=== PATIENT | female | born 1960 | race African-American/Black ===

== ENCOUNTER 2017-08-03 15:30 | Inpatient (IN) | payer MEDICARE, MEDICAID ==
[~2017-08-03] VITALS: Ht 157.5 cm; Wt 98.9 kg
[~2017-08-03 15:30] MED LIST: ALLO300T PO; FERR-36 PO; ISOS30TA4 PO; LANS15CA78 PO; METO100T5 PO; METO50TA6 PO; NITR2.5C3 PO; OXYC10TA57 PO; POTA20TA12 PO; PRAV40TA2 PO; PRED-220 PO; PROP150T2 PO; TORS20TA2 PO; TRIA1TAB2 PO
[2017-08-03 16:38] LABS: BASO % 0 % (0-3); EOS % 0 % (0-3); HEMATOCRIT 27.7 % (36.0-47.0); HEMOGLOBIN 9.5 g/dL (12.0-15.5); LYMPH # 0.3 x10^3/uL (1.0-4.8); LYMPH % 3 % (24-48); MEAN CORPUSCULAR HEMOGLOBIN 32 pg (25-35); MEAN CORPUSCULAR HGB CONC 34 g/dL (31-37); MEAN CORPUSCULAR VOLUME 92 fL (79-100); MONO # 0.5 x10^3/uL (0.0-1.1); MONO % 6 % (0-9); NEUT # 6.9 x10^3uL (1.8-7.7); NEUT % 90 % (31-73); PLATELET COUNT 184 x10^3/uL (140-400); RED BLOOD COUNT 3.02 x10^6/uL (3.50-5.40); RED CELL DISTRIBUTION WIDTH 16.4 % (11.5-14.5); WHITE BLOOD COUNT 7.7 x10^3/uL (4.0-11.0)
[2017-08-03 16:46] LABS: BACTERIA,URINE 0 /HPF (0-FEW); BILIRUBIN,URINE NEG (NEG); CLARITY,URINE CLEAR; COLOR,URINE YELLOW; GLUCOSE,URINE NEG (NEG); NITRITE,URINE NEG (NEG); RBC,URINE OCC /HPF (0-2); SQUAMOUS EPITHELIAL CELL,UR OCC /LPF; UROBILINOGEN,URINE 2 mg/dL (0.2 mg/dL); WBC,URINE OCC /HPF (0-4)
[2017-08-03 16:47] LABS: AMORPHOUS SEDIMENT,UR PRESENT /HPF
--- NOTE | 2017-08-03 17:00 | EKG ---
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
[2017-08-03 17:31] LABS: ALBUMIN 2.6 g/dL (3.4-5.0); ALBUMIN/GLOBULIN RATIO 0.6 (1.0-1.7); ALK PHOS 270 U/L (46-116); ALT (SGPT) 31 U/L (14-59); ANION GAP 11 (6-14); AST (SGOT) 64 U/L (15-37); BLOOD UREA NITROGEN 15 mg/dL (7-20); BUN/CREATININE RATIO 13 (6-20); CALCIUM 8.4 mg/dL (8.5-10.1); CARBON DIOXIDE 22 mmol/L (21-32); CHLORIDE 84 mmol/L (98-107); CREATINE KINASE 42 U/L (26-192); CREATININE 1.2 mg/dL (0.6-1.0); GFR 56.6; GLUCOSE 121 mg/dL (70-99); MAGNESIUM 1.5 mg/dL (1.8-2.4); POTASSIUM 4.7 mmol/L (3.5-5.1); TOTAL BILIRUBIN 1.2 mg/dL (0.2-1.0); TOTAL PROTEIN 7.2 g/dL (6.4-8.2)
[2017-08-03 17:35] LABS: SODIUM 117 mmol/L (136-145)
--- NOTE | 2017-08-03 17:48 | PHYS DOC ---
Past History Past Medical History: Arrhythmia, CHF, Hypertension, Hypotension, Renal Failure Additional Past Medical Histor: Sarcoidosis Past Surgical History: Other Smoking: Non-smoker Alcohol Use: None Drug Use: None Adult General Chief Complaint Chief Complaint: MULTIPLE COMPLAINTS HPI HPI Patient is a 56-year-old female brought from home by family with a complaint of weakness. Patient states she has been weak and off balance for maybe a month. She came in today because she couldn't even get out of bed. It has been progressively worsening. When asked if she has any pain, the patient states "well I do have a headache". She does not have any significant pain at this time. She feels a little short of breath. She denies chest pain. She has not had a fall. ED nursing staff report that the patient required a significant amount of help to get out of the car and required wheelchair to get back to her room, required a lot of help to get out of the wheelchair into the bed. Patient states she has had some nausea and vomited twice. She is constipated. Patient lives with multiple family members. She gives a history of sarcoidosis. She has been taking her medications as prescribed but does not have a list with her. PCP Dr. Hernandez Review of Systems Review of Systems Constitutional: Denies fever or chills [] HENT: Denies nasal congestion or sore throat [] Respiratory: She has a little short of breath Cardiovascular: Denies chest pain GI: Denies abdominal pain, she has had some nausea and a couple of episodes of vomiting, denies diarrhea : Denies dysuria or hematuria [] Musculoskeletal: Denies back pain or joint pain [] Integument: Denies rash or skin lesions [] Neurologic: She has had a mild headache Allergies Allergies Allergies Coded Allergies Type Severity Reaction Last Updated Verified No Known Drug Allergies 11/08/14 No Physical Exam Physical Exam Constitutional: Well developed, well nourished, alert, mentating normally, nonfocal HENT: Normocephalic, atraumatic, bilateral external ears normal, nose normal. [ ] Eyes: conjunctiva normal, no discharge. [] Neck: Normal range of motion, no stridor. [] Cardiovascular:Heart rate regular rhythm, no murmur [] Lungs & Thorax: Bilateral breath sounds clear to auscultation [] Abdomen: Bowel sounds normal, soft, no tenderness, no masses, no pulsatile masses. [] Skin: Warm, dry, no erythema, no rash. [] Extremities: No tenderness, no cyanosis, no clubbing, ROM intact, trace edema both ankles Neurologic: Alert and oriented X 3, normal motor function, no focal deficits noted. [] Current Patient Data Vital Signs Vital Signs Date Time Temp Pulse Resp B/P (MAP) Pulse Ox O2 Delivery O2 Flow Rate FiO2 08/03/17 16:30 62 16 122/79 (93) 96 Room Air 08/03/17 15:32 97.9 Lab Results Laboratory Tests Test 08/03/17 16:21 White Blood Count 7.7 x10^3/uL (4.0-11.0) Red Blood Count 3.02 x10^6/uL (3.50-5.40) L Hemoglobin 9.5 g/dL (12.0-15.5) L Hematocrit 27.7 % (36.0-47.0) L Mean Corpuscular Volume 92 fL (79-100) Mean Corpuscular Hemoglobin 32 pg (25-35) Mean Corpuscular Hemoglobin Concent 34 g/dL (31-37) Red Cell Distribution Width 16.4 % (11.5-14.5) H Platelet Count 184 x10^3/uL (140-400) Neutrophils (%) (Auto) 90 % (31-73) H Lymphocytes (%) (Auto) 3 % (24-48) L Monocytes (%) (Auto) 6 % (0-9) Eosinophils (%) (Auto) 0 % (0-3) Basophils (%) (Auto) 0 % (0-3) Neutrophils # (Auto) 6.9 x10^3uL (1.8-7.7) Lymphocytes # (Auto) 0.3 x10^3/uL (1.0-4.8) L Monocytes # (Auto) 0.5 x10^3/uL (0.0-1.1) Eosinophils # (Auto) 0.0 x10^3/uL (0.0-0.7) Basophils # (Auto) 0.0 x10^3/uL (0.0-0.2) Urine Collection Type U cath Urine Color Yellow Urine Clarity Clear Urine pH 5.0 Urine Specific [place] 1.010 Urine Protein 30 mg/dl (NEG-TRACE) Urine Glucose (UA) Neg mg/dL (NEG) Urine Ketones (Stick) Neg mg/dL (NEG) Urine Blood Small (NEG) Urine Nitrite Neg (NEG) Urine Bilirubin Neg (NEG) Urine Urobilinogen Dipstick 2 mg/dL (0.2 mg/dL) Urine Leukocyte Esterase Neg (NEG) Urine RBC Occ /HPF (0-2) Urine WBC Occ /HPF (0-4) Urine Squamous Epithelial Cells Occ /LPF Urine Amorphous Sediment Present /HPF Urine Bacteria 0 /HPF (0-FEW) Urine Mucus Slight /LPF Troponin I Quantitative < 0.017 ng/mL (0-0.055) EKG EKG 12-lead EKG read by me. Paced rhythm. Heart rate 79. Wide QRS with some repolarization abnormalities due to paced. No STEMI. 1555[] Radiology/Procedures Radiology/Procedures One view portable chest x-ray read by me. Heart size normal. Right hilar fullness, suspect secondary to sarcoidosis, no infiltrate, no CHF.[] Course & Med Decision Making Course & Med Decision Making Pertinent Labs and Imaging studies reviewed. (See chart for details) 56-year-old female with a history of sarcoidosis presents with progressively worsening generalized weakness, states today she was so weak she couldn't get out of bed. Her weakness is nonfocal in nature. There is no evidence of an acute stroke, and also her symptoms have been aggressively worsening for month. Evaluation here in the ED reveals hyponatremia. Additionally, I noted that the patient is on prednisone 10 mg daily. I discussed the patient with Dr. Hernandez, who will admit her. He and I agreed to give her a dose of hydrocortisone for stress dose steroids. I wrote bridge orders. [] Dragon Disclaimer Dragon Disclaimer This electronic medical record was generated, in whole or in part, using a voice recognition dictation system. Departure Departure: Impression: Primary Impression: Hyponatremia Additional Impression: Generalized weakness Disposition: ADMITTED INPATIENT Admitting Physician: Severo Hernandez Condition: STABLE Referrals: SEVERO HERNANDEZ MD (PCP) Problem Qualifiers EZEQUIEL JAIME MD Aug 03, 2017 17:48
[2017-08-03] MEDS ORDERED: ONDANSETRON PF 4 MG/2 ML VIAL. IV PRN (18:00)
[2017-08-03] MEDS ORDERED: HYDROCORTISONE SOD SUCC/PF 100 MG/2 ML VIAL. IV ONE (18:15)
[2017-08-03 19:42] VITALS: BP 109/63
[2017-08-03] MEDS ORDERED: LISI2.5T PO ×2 (20:46→20:47)
[2017-08-03] MEDS ORDERED: RANO500T2 PO (20:46)
[2017-08-03] MEDS ORDERED: METOPROLOL TART IMMED RELEASE 50 MG TABLET PO SCH (21:00)
[2017-08-03] MEDS ORDERED: oxyCODONE ER 10 MG TAB.ER.12H PO SCH (21:00)
[2017-08-03] MEDS: ATORVASTATIN CALCIUM 10 MG TABLET. PO SCH (21:38)
[2017-08-03] MEDS: RANOLAZINE 500 MG TAB.ER.12H PO SCH (21:38)
[2017-08-03 22:52] VITALS: BP 130/85
[2017-08-04] MEDS ORDERED: Influenza vaccine per PROTOCOL. MC PRN (00:15)
[2017-08-04] MEDS ORDERED: NORT25CA PO (02:46)
[2017-08-04 05:18] VITALS: BP 99/72
[2017-08-04 06:35] LABS: BASO % 0 % (0-3); EOS % 0 % (0-3); HEMATOCRIT 26.3 % (36.0-47.0); HEMOGLOBIN 9.1 g/dL (12.0-15.5); LYMPH # 0.3 x10^3/uL (1.0-4.8); LYMPH % 4 % (24-48); MEAN CORPUSCULAR HEMOGLOBIN 33 pg (25-35); MEAN CORPUSCULAR HGB CONC 35 g/dL (31-37); MEAN CORPUSCULAR VOLUME 95 fL (79-100); MONO # 0.4 x10^3/uL (0.0-1.1); MONO % 6 % (0-9); NEUT # 6.2 x10^3uL (1.8-7.7); NEUT % 90 % (31-73); PLATELET COUNT 168 x10^3/uL (140-400); RED BLOOD COUNT 2.77 x10^6/uL (3.50-5.40); WHITE BLOOD COUNT 6.9 x10^3/uL (4.0-11.0)
[2017-08-04 06:39] LABS: CALCIUM 8.4 mg/dL (8.5-10.1); CREATININE 1.2 mg/dL (0.6-1.0); GFR 56.6; POTASSIUM 4.2 mmol/L (3.5-5.1)
--- NOTE | 2017-08-04 08:24 | RAD ---
Examination: Single frontal view the chest. History: History of shortness of breath, weakness Comparison: 12/22/2014 Findings: Low lung volumes and technique accentuate heart size and pulmonary vascularity. Mild prominent appearing bilateral prominence could be hilar lymphadenopathy slightly less prominent compared to prior exam. Minimal prominent appearing bilateral interstitial lung markings. Impression: 1. Prominent appearing bilateral hilar regions could be hilar lymphadenopathy appears less prominent compared to prior exam. There is mild prominent bilateral basal lung markings. Findings could be due to known underlying sarcoidosis.
[2017-08-04] MEDS ORDERED: ISOSORBIDE MONONITRATE ER 30 MG TAB.ER.24H PO SCH (09:00)
[2017-08-04 10:42] VITALS: BP_SYST 110; BP_SYST 132; BP_DIAS 66; BP_DIAS 70
[2017-08-04] MEDS: PANTOPRAZOLE 40 MG TABLET. PO SCH (10:43)
[2017-08-04] MEDS: ALLOPURINOL 300 MG TABLET. PO SCH (10:43)
[2017-08-04] MEDS: LISINOPRIL 2.5 MG TABLET PO SCH (10:44)
[2017-08-04] MEDS: RANOLAZINE 500 MG TAB.ER.12H PO SCH ×2 (10:44→21:00)
[2017-08-04] MEDS: PROPAFENONE 150 MG TABLET. PO SCH ×3 (10:44→21:00)
[2017-08-04] MEDS: predniSONE 10 MG TABLET PO SCH (10:44)
[2017-08-04] MEDS: METOPROLOL SUCC 24HR ER 50 MG TAB.ER.24H. PO SCH (10:45)
[2017-08-04] MEDS: POTASSIUM CHLORIDE 20 MEQ TABLET.ER. PO SCH ×2 (10:45→17:00)
[2017-08-04] MEDS: TORSEMIDE 20 MG TABLET. PO SCH (11:05)
[2017-08-04] MEDS: MAGNESIUM CHLORIDE ER 64 MG TABLET.ER PO SCH (11:05)
[2017-08-04] MEDS ORDERED: IPRATRPIUM/ALBUTEROL 0.5/2.5MG 3 ML NEBU. ONE (11:12)
[2017-08-04] MEDS: IPRATRPIUM/ALBUTEROL 0.5/2.5MG 3 ML NEBU. NEB SCH ×2 (13:15→22:36)
[2017-08-04] MEDS: FERROUS SULFATE 325 MG TABLET. PO SCH ×2 (13:19→21:00)
[2017-08-04] MEDS: IV NORMAL SALINE 1,000ML 1,000 ML IV SCH (13:20)
[2017-08-04 15:56] VITALS: BP 116/69
--- NOTE | 2017-08-04 18:15 | HP ---
ADMIT DATE: 08/03/2017 HISTORY OF PRESENT ILLNESS: A 56-year-old female brought by family complaining of weakness. The patient states she has been weak, off balance for about a month, could not get out of bed, progressively worsening overall. The patient came in through the Emergency Room; she required help getting in and out of the car. The patient was noted to have sodium of about 117. 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 PAST MEDICAL HISTORY: She has severe sarcoidosis, possible dermatological effects of sarcoid on the face and neck, chronic ankle pain, chronic fracture, coronary artery disease, she had a previous IN with Dr. Stapleton, fibroid cyst of the pancreas, pacemaker, and long-term use of medications. PAST SURGICAL HISTORY: Cyst removed from the pancreas. The patient has also had a history of heart failure. FAMILY HISTORY: Father is alive. Mother is of unknown causes. ALLERGIES: No known allergies. MEDICATIONS: Include nortriptyline 25 mg capsule b.i.d., lisinopril 2.5 mg, aspirin 80 mg, nebulizer treatments, Prevacid OTC. She is on chronic oxygen, folic acid 1 mg daily, DuoNeb treatments, metoprolol 100 mg 1-1/2 tablets daily, torsemide 20 mg 2 tablets daily, Propafenone, hydrochloride 150 mg every 8 hours, Ranexa 500 mg extended tabs b.i.d., oxycodone 20 mg was discontinued, potassium chloride 20 mEq daily, Stiolto Respimat 2.5 mg inhaled b.i.d., Tudorza Pressair, Lyrica 50 mg 2 capsules twice daily, gabapentin 300 mg 3 times a day, prednisone 5 mg daily. ALLERGIES: The patient has allergies to none known. SOCIAL HISTORY: The patient denies smoking, alcohol or drug use, maybe he does drink a couple of glasses of wine a week, sexually active. The patient's review is a full code. REVIEW OF SYSTEMS: The patient denies any fever or chills. He does have chronic pain. He does have loss of appetite. He does have fatigue and malaise. The patient denies chest pain, shortness of breath, generalized weakness. The patient otherwise denies any melena, hematochezia, hematemesis at the present time. PHYSICAL EXAMINATION: GENERAL: This is a very pleasant -[place] female, extremely frail, weak appearing. VITAL SIGNS: Blood pressure was low as 99/70, respiratory 18, pulse 60, afebrile, oxygen saturation good. HEENT: Atraumatic, normocephalic. Eyes: PERRLA without jaundice. The patient has scarring to her face and neck secondary to her sarcoid. LUNGS: The patient's lungs are diminished throughout, but clear. CARDIOVASCULAR: Regular sinus rhythm, S1, S2, without murmur, rub, thrill, or extra heart sounds. ABDOMEN: The patient's abdomen is soft, nontender, no rebounding or guarding. Positive bowel sounds, no hepatosplenomegaly noted. EXTREMITIES: No clubbing, cyanosis or edema. NEUROLOGIC: The patient was alert and oriented x 3. LABORATORY DATA: Show a sodium of 117, creatinine of 1.2, calcium low at 8.4, magnesium low at 1.5. Liver enzymes slightly elevated AST, BNP, and elevated thyroid. Hemoglobin and hematocrit stable at 9.1 and 26, chronic anemia. UA was unremarkable. Chest x-ray shows as changes of sarcoidosis. IMPRESSION: Syndrome of inappropriate antidiuretic hormone secretion, with sodium of 117, generalized weakness, sarcoid, and chronic anemia. PLAN: Continue to monitor the patient accordingly. Fluid restrict, normal saline, take her off some of her diuretics, and we will make further evaluation on her as indicated. KELLEN DARLING MD DR: NUNU/armida JOB#: [id number] / [id number]
[2017-08-04 19:17] VITALS: BP 113/78
[2017-08-04] MEDS: NORTRIPTYLINE 25 MG CAPSULE PO SCH (21:00)
[2017-08-04] MEDS: ATORVASTATIN CALCIUM 10 MG TABLET. PO SCH (21:00)
[2017-08-04 22:53] VITALS: BP 92/59
[2017-08-05] MEDS: IV NORMAL SALINE 1,000ML 1,000 ML IV SCH ×2 (02:14→13:10)
[2017-08-05 04:59] VITALS: BP 143/92
[2017-08-05 07:08] LABS: BASO % 0 % (0-3); EOS % 0 % (0-3); HEMATOCRIT 25.6 % (36.0-47.0); HEMOGLOBIN 8.8 g/dL (12.0-15.5); LYMPH # 0.5 x10^3/uL (1.0-4.8); LYMPH % 8 % (24-48); MEAN CORPUSCULAR HEMOGLOBIN 33 pg (25-35); MEAN CORPUSCULAR HGB CONC 34 g/dL (31-37); MEAN CORPUSCULAR VOLUME 96 fL (79-100); MONO # 0.8 x10^3/uL (0.0-1.1); MONO % 12 % (0-9); NEUT # 5.2 x10^3uL (1.8-7.7); NEUT % 80 % (31-73); PLATELET COUNT 176 x10^3/uL (140-400); RED BLOOD COUNT 2.66 x10^6/uL (3.50-5.40); RED CELL DISTRIBUTION WIDTH 17.1 % (11.5-14.5); WHITE BLOOD COUNT 6.5 x10^3/uL (4.0-11.0)
[2017-08-05 07:11] LABS: CALCIUM 8.3 mg/dL (8.5-10.1); CREATININE 1.2 mg/dL (0.6-1.0); GFR 56.6; POTASSIUM 4.1 mmol/L (3.5-5.1)
[2017-08-05] MEDS: NORTRIPTYLINE 25 MG CAPSULE PO SCH (08:47)
[2017-08-05] MEDS: TORSEMIDE 20 MG TABLET. PO SCH (08:48)
[2017-08-05] MEDS: RANOLAZINE 500 MG TAB.ER.12H PO SCH (08:48)
[2017-08-05] MEDS: PANTOPRAZOLE 40 MG TABLET. PO SCH (08:48)
[2017-08-05] MEDS: PROPAFENONE 150 MG TABLET. PO SCH ×2 (08:48→13:26)
[2017-08-05] MEDS: MAGNESIUM CHLORIDE ER 64 MG TABLET.ER PO SCH (08:49)
[2017-08-05] MEDS: FERROUS SULFATE 325 MG TABLET. PO SCH ×2 (08:49→13:26)
[2017-08-05] MEDS: METOPROLOL SUCC 24HR ER 50 MG TAB.ER.24H. PO SCH (08:49)
[2017-08-05] MEDS: predniSONE 10 MG TABLET PO SCH (08:49)
[2017-08-05] MEDS: LISINOPRIL 2.5 MG TABLET PO SCH (08:49)
[2017-08-05] MEDS: ALLOPURINOL 300 MG TABLET. PO SCH (08:49)
[2017-08-05] MEDS: POTASSIUM CHLORIDE 20 MEQ TABLET.ER. PO SCH (08:50)
[2017-08-05] MEDS: IPRATRPIUM/ALBUTEROL 0.5/2.5MG 3 ML NEBU. NEB SCH (10:33)
[2017-08-05 11:00] VITALS: BP 111/73
[2017-08-05 13:26] VITALS: BP 111/73
[2017-08-05] MEDS ORDERED: METO50TA6 PO (14:50)
[2017-08-05] MEDS ORDERED: FERR325T72 PO (14:50)
[2017-08-05] MEDS ORDERED: TORS20TA2 PO (14:54)
[2017-08-05] MEDS ORDERED: Magnesium Chloride Er PO (14:56)
== END 2017-08-05 15:56 | disposition home or self-care (01) | DRG 643 ==
LOC: ER 15:30 → 1 SOUTH 18:38
PROVIDERS: ADMIT Family Medicine; ATTEND Family Medicine
DX: E22.2 Syndrome of inappropriate secretion of antidiuretic hormone (principal); E43 Unspecified severe protein-calorie malnutrition; I11.0 Hypertensive heart disease with heart failure; I50.9 Heart failure, unspecified; Z99.81 Dependence on supplemental oxygen; I25.10 Atherosclerotic heart disease of native coronary artery without angina pectoris; D64.9 Anemia, unspecified; K59.00 Constipation, unspecified; M25.579 Pain in unspecified ankle and joints of unspecified foot; D86.89 Sarcoidosis of other sites; G89.29 Other chronic pain; Z87.81 Personal history of (healed) traumatic fracture; I25.2 Old myocardial infarction; Z95.0 Presence of cardiac pacemaker; Z79.899 Other long term (current) drug therapy
CPT/HCPCS: 36415; 51701; 71010; 80048; 80053; 81001; 82553; 83735; 83880; 84443; 84484; 85025; 93005; 94640; 96374; J7512; J7620; 99285-25; J7030

== ENCOUNTER 2017-08-22 09:28 | Emergency (ER) | payer MEDICARE, MEDICAID ==
[~2017-08-22] VITALS: Ht 170.2 cm; Wt 106.6 kg
[~2017-08-22 09:28] MED LIST changes: +FERR325T72 PO; +LISI2.5T PO; +Magnesium Chloride Er PO; +NORT25CA PO; +RANO500T2 PO
--- NOTE | 2017-08-22 10:26 | PHYS DOC ---
Past History Past Medical History: Arrhythmia, CHF, Hypertension, Hypotension, Renal Failure Additional Past Medical Histor: Sarcoidosis Past Surgical History: Other Smoking: Non-smoker Alcohol Use: None Drug Use: None Adult General Chief Complaint Chief Complaint: WEAKNESS/GENERALIZED HPI HPI Patient is a 56 year old F who presents with generalized weakness over the past 2-3 days. She denies any other associated symptoms. She denies exacerbating or alleviating factors. She did have a similar episode for which she was seen at [facility] emergency room and found to have low potassium. Review of Systems Review of Systems Constitutional: Denies fever or chills [] Eyes: Denies change in visual acuity, redness, or eye pain [] HENT: Denies nasal congestion or sore throat [] Respiratory: Denies cough or shortness of breath [] Cardiovascular: No additional information not addressed in HPI [] GI: Denies abdominal pain, nausea, vomiting, bloody stools or diarrhea [] : Denies dysuria or hematuria [] Musculoskeletal: Denies back pain or joint pain [] Integument: Denies rash or skin lesions [] Neurologic: Denies headache, focal weakness or sensory changes [] Endocrine: Denies polyuria or polydipsia [] All other systems were reviewed and found to be within normal limits, except as documented in this note. Family History Family History No pertinent medical history was reported Current Medications Current Medications Current medications were reviewed Allergies Allergies Allergies Coded Allergies Type Severity Reaction Last Updated Verified No Known Drug Allergies 11/08/14 No Physical Exam Physical Exam Constitutional: Well developed, well nourished, no acute distress, ill-appearing HENT: Normocephalic, atraumatic, Eyes: EOMI, conjunctiva normal, no discharge. [] Neck: Normal range of motion, no tenderness, supple, no stridor. [] Cardiovascular:Heart rate regular rhythm, Lungs & Thorax: Bilateral breath sounds clear to auscultation [] Abdomen: Bowel sounds normal, soft, no tenderness, no masses, no pulsatile masses. [] Skin: Warm, dry, no erythema, no rash. [] Extremities: No tenderness, no cyanosis, no clubbing, ROM intact, no edema. [] Neurologic: Alert and oriented X 3, normal motor function, normal sensory function, no focal deficits noted. [] Generalized weakness. Dagmar has difficulty sitting up in bed without assistance Psychologic: Affect normal, judgement normal, mood normal. [] Occasionally disoriented Current Patient Data Vital Signs Vital Signs Date Time Temp Pulse Resp B/P (MAP) Pulse Ox O2 Delivery O2 Flow Rate FiO2 08/22/17 09:30 98.3 61 22 97 Room Air Lab Results Laboratory Tests Test 08/22/17 11:09 08/22/17 11:45 08/22/17 12:44 08/22/17 13:13 White Blood Count 5.3 x10^3/uL (4.0-11.0) Red Blood Count 2.90 x10^6/uL (3.50-5.40) Hemoglobin 9.3 g/dL (12.0-15.5) Hematocrit 27.9 % (36.0-47.0) Mean Corpuscular Volume 96 fL (79-100) Mean Corpuscular Hemoglobin 32 pg (25-35) Mean Corpuscular Hemoglobin Concent 34 g/dL (31-37) Red Cell Distribution Width 17.7 % (11.5-14.5) Platelet Count 372 x10^3/uL (140-400) Neutrophils (%) (Auto) 80 % (31-73) Lymphocytes (%) (Auto) 10 % (24-48) Monocytes (%) (Auto) 9 % (0-9) Eosinophils (%) (Auto) 0 % (0-3) Basophils (%) (Auto) 0 % (0-3) Neutrophils # (Auto) 4.3 x10^3uL (1.8-7.7) Lymphocytes # (Auto) 0.5 x10^3/uL (1.0-4.8) Monocytes # (Auto) 0.5 x10^3/uL (0.0-1.1) Eosinophils # (Auto) 0.0 x10^3/uL (0.0-0.7) Basophils # (Auto) 0.0 x10^3/uL (0.0-0.2) Sodium Level 126 mmol/L (136-145) Potassium Level 6.7 mmol/L (3.5-5.1) Chloride Level 96 mmol/L (98-107) Carbon Dioxide Level 20 mmol/L (21-32) Anion Gap 10 (6-14) Blood Urea Nitrogen 25 mg/dL (7-20) Creatinine 2.9 mg/dL (0.6-1.0) Estimated GFR (Cockcroft-Gault) 20.5 Glucose Level 129 mg/dL (70-99) Calcium Level 8.7 mg/dL (8.5-10.1) Total Bilirubin 0.9 mg/dL (0.2-1.0) Direct Bilirubin 0.6 mg/dL (0.0-0.2) Aspartate Amino Transf (AST/SGOT) 30 U/L (15-37) Alanine Aminotransferase (ALT/SGPT) 18 U/L (14-59) Alkaline Phosphatase 285 U/L (46-116) Total Protein 7.8 g/dL (6.4-8.2) Albumin 2.6 g/dL (3.4-5.0) Magnesium Level 2.0 mg/dL (1.8-2.4) Glucose (Fingerstick) 144 mg/dL (70-99) 78 mg/dL (70-99) Test 08/22/17 14:15 Urine Collection Type U cath Urine Color Yellow Urine Clarity Hazy Urine pH 8.5 Urine Specific [place] 1.025 Urine Protein >100 mg/dl (NEG-TRACE) Urine Glucose (UA) Neg mg/dL (NEG) Urine Ketones (Stick) Neg mg/dL (NEG) Urine Blood Large (NEG) Urine Nitrite Pos (NEG) Urine Bilirubin Neg (NEG) Urine Urobilinogen Dipstick 1 mg/dL (0.2 mg/dL) Urine Leukocyte Esterase Trace (NEG) Urine RBC 11-20 /HPF (0-2) Urine WBC 5-10 /HPF (0-4) Urine Squamous Epithelial Cells Occ /LPF Urine Amorphous Sediment Present /HPF Urine Bacteria Mod /HPF (0-FEW) EKG EKG Wide-complex rhythm. Previous EKG was reviewed and there was changes noted Radiology/Procedures Radiology/Procedures Critical care time greater than 90 minutes Metabolic disturbances including hyperkalemia with EKG changes. IV dextrose and insulin were administered immediately as well as calcium gluconate. She was given a continuous nebulized albuterol. Hospitalist was contacted for transfer at [facility]. Her care was accepted however transfer was declined due to no available beds. [facility] was contacted for transfer. From the time was initially contacted until a bed became available 2 hours past. There was initial delays as the patient is a very difficult stick. Labs were available approximately 2-1/2 hours after arrival. She was also started on gentle hydration with normal saline at 75 ML's per hour and was given Lasix 20 mg IV Course & Med Decision Making Course & Med Decision Making Pertinent Labs and Imaging studies reviewed. (See chart for details) [] Dragon Disclaimer Dragon Disclaimer This electronic medical record was generated, in whole or in part, using a voice recognition dictation system. Departure Departure: Impression: Primary Impression: Hyperkalemia Additional Impressions: Hyponatremia Acute on chronic renal failure Arrhythmia Disposition: XF OTHER Condition: GRAVE Referrals: KELLEN DARLING MD (PCP) Problem Qualifiers Additional Impressions: Acute on chronic renal failure Acute renal failure type: unspecified Chronic kidney disease stage: unspecified stage Qualified Codes: N17.9 - Acute kidney failure, unspecified; N18.9 - Chronic kidney disease, unspecified Arrhythmia Arrhythmia type: unspecified cardiac arrhythmia Qualified Codes: I49.9 - Cardiac arrhythmia, unspecified KELLEN DEWITT MD Aug 22, 2017 10:26
[2017-08-22 11:26] LABS: BASO % 0 % (0-3); EOS % 0 % (0-3); HEMATOCRIT 27.9 % (36.0-47.0); HEMOGLOBIN 9.3 g/dL (12.0-15.5); LYMPH # 0.5 x10^3/uL (1.0-4.8); LYMPH % 10 % (24-48); MEAN CORPUSCULAR HEMOGLOBIN 32 pg (25-35); MEAN CORPUSCULAR HGB CONC 34 g/dL (31-37); MEAN CORPUSCULAR VOLUME 96 fL (79-100); MONO # 0.5 x10^3/uL (0.0-1.1); MONO % 9 % (0-9); NEUT # 4.3 x10^3uL (1.8-7.7); NEUT % 80 % (31-73); PLATELET COUNT 372 x10^3/uL (140-400); RED CELL DISTRIBUTION WIDTH 17.7 % (11.5-14.5); WHITE BLOOD COUNT 5.3 x10^3/uL (4.0-11.0)
[2017-08-22 11:33] LABS: CALCIUM 8.7 mg/dL (8.5-10.1); CREATININE 2.9 mg/dL (0.6-1.0); GFR 20.5
[2017-08-22 11:35] LABS: POTASSIUM 6.7 mmol/L (3.5-5.1)
--- NOTE | 2017-08-22 11:49 | EKG ---
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
[2017-08-22] MEDS ORDERED: ALBUTEROL SULFATE 2.5 MG/3 ML NEBU. CONT NEB ONE (12:15)
[2017-08-22 12:20] LABS: ALBUMIN 2.6 g/dL (3.4-5.0); DIRECT BILIRUBIN 0.6 mg/dL (0.0-0.2); TOTAL BILIRUBIN 0.9 mg/dL (0.2-1.0); TOTAL PROTEIN 7.8 g/dL (6.4-8.2)
[2017-08-22] MEDS ORDERED: INSULIN REGULAR 100 UNIT/ML 10ML VIAL. IV ONE (12:20)
[2017-08-22] MEDS ORDERED: DEXTROSE 50% 25 GM / 50ML DISP.SYRIN. IV ONE (12:20)
[2017-08-22] MEDS ORDERED: CALCIUM GLUCONATE 1,000 MG/10 ML VIAL IV ONE (12:30)
[2017-08-22] MEDS ORDERED: IV NORMAL SALINE 1,000ML 1,000 ML IV ONE (13:45)
[2017-08-22] MEDS ORDERED: FUROSEMIDE 40 MG/4 ML VIAL IVP ONE (14:00)
[2017-08-22 14:49] LABS: BACTERIA,URINE MOD /HPF (0-FEW); BILIRUBIN,URINE NEG (NEG); CLARITY,URINE HAZY; COLOR,URINE YELLOW; GLUCOSE,URINE NEG (NEG); NITRITE,URINE POS (NEG); SQUAMOUS EPITHELIAL CELL,UR OCC /LPF; UROBILINOGEN,URINE 1 mg/dL (0.2 mg/dL)
[2017-08-22 14:50] LABS: AMORPHOUS SEDIMENT,UR PRESENT /HPF
[2017-08-22] MEDS ORDERED: cefTRIAXone IV Push 1 GM VIAL. IVP SCH (16:30)
[2017-08-22 16:57] VITALS: BP 123/71
== END 2017-08-22 16:50 | disposition short-term general hospital (02) ==
LOC: ER 09:28
DX: N17.9 Acute kidney failure, unspecified (principal); I49.9 Cardiac arrhythmia, unspecified; E87.5 Hyperkalemia; N18.9 Chronic kidney disease, unspecified; E87.1 Hypo-osmolality and hyponatremia; I13.0 Hypertensive heart and chronic kidney disease with heart failure and stage 1 through stage 4 chronic kidney disease, or unspecified chronic kidney disease; I50.9 Heart failure, unspecified
CPT/HCPCS: 36415; 51702; 80048; 80076; 81001; 82947; 83735; 85025; 87086; 87186; 93005; 94640; 96361; 96374; 96375; 99285; J0610; J0696; J1815; J1940; J7613; 87040; J7030

== ENCOUNTER 2017-10-09 16:22 | Inpatient (IN) | payer MEDICARE, MEDICAID ==
[~2017-10-09] VITALS: Ht 157.5 cm; Wt 78.5 kg
[~2017-10-09 16:22] MED LIST changes: +ASPI325T70 PO; +ASPI325T8 PO; +ATOR40TA59 PO; +FOLI1TAB16 PO; +GABA-586 PO; +METO-247 PO; +METO25TA4 PO; +METOPROLOL ER PO; +NITR0.4T SL; +NORE0.356 PO; +OPTIVAR EACHEYE; +POTA10CA PO; +PRED2.5T PO
--- NOTE | 2017-10-09 16:32 | PHYS DOC ---
Past History Past Medical History: Arrhythmia, CHF, Hypertension, Hypotension, Renal Failure Additional Past Medical Histor: Sarcoidosis Past Surgical History: Other Smoking: Non-smoker Alcohol Use: None Drug Use: None Adult General Chief Complaint Chief Complaint: WEAKNESS/GENERALIZED HPI HPI Patient is a 56-year-old female presenting to the emergency department for evaluation of generalized weakness and chest pain. She appears to have been seen here on August 22 and then was subsequently transferred to [facility] and she was hyperkalemic. Patient says that she was therefore over a week and since she has returned home she cannot do daily tasks and she has had nausea vomiting and inability to eat or drink anything or take down her pills for the past 2 weeks. I went into more depth about the inability to get around and then she said that she is able to get up and go the bathroom and do her daily tasks that she can just not go up and down stairs that she has not left her place of living. Patient says that she feels weak and tired. The chest pain is off and on every day that she describes as a pressure sensation on the left side of her chest. She has had the nausea and vomiting but no diaphoresis or shortness of breath. She says that it is not associated with exertion and happens typically at rest lasting for under a minute time. Review of Systems Review of Systems Constitutional: Denies fever or chills [] Eyes: Denies change in visual acuity, redness, or eye pain [] HENT: Denies nasal congestion or sore throat [] Respiratory: Denies cough or shortness of breath [] Cardiovascular: No additional information not addressed in HPI [] GI: + epigastric abdominal pain, nausea, vomiting. No bloody stools or diarrhea [] : Denies dysuria or hematuria [] Musculoskeletal: Denies back pain or joint pain [] Integument: Denies rash or skin lesions [] Neurologic: Denies headache, focal weakness or sensory changes [] All other systems were reviewed and found to be within normal limits, except as documented in this note. Allergies Allergies Allergies Coded Allergies Type Severity Reaction Last Updated Verified No Known Drug Allergies 11/08/14 No Physical Exam Physical Exam Constitutional: Well developed, well nourished, no acute distress, non-toxic appearance. [] HENT: Normocephalic, atraumatic, bilateral external ears normal, oropharynx moist, no oral exudates, nose normal. [] Eyes: PERRLA, EOMI, conjunctiva normal, no discharge. [] Neck: Normal range of motion, no tenderness, supple, no stridor. [] Cardiovascular:Heart rate regular rhythm, no murmur [] Lungs & Thorax: Bilateral breath sounds clear to auscultation [] Abdomen: Bowel sounds normal, soft, no tenderness, no masses, no pulsatile masses. [] Skin: Warm, dry, no erythema, no rash. [] Back: No tenderness, no CVA tenderness. [] Extremities: No tenderness, no cyanosis, no clubbing, ROM intact, no edema. [] Neurologic: Alert and oriented X 3, normal motor function, normal sensory function, no focal deficits noted. [] Psychologic: Affect normal, judgement normal, mood normal. [] EKG EKG EKG shows sinus rhythm at 97 beats per minutes with normal axis no obvious ST elevation but there appears to be some questionable ST depression in leads V3 through V6 with inverted T waves in leads V2 through V6. Only prior comparison is on August 22 she was hyperkalemic and her EKG was quite complex. Radiology/Procedures Radiology/Procedures Single view chest 10/09/2017 Clinical indication: Chest pain and weakness. Comparison: Chest 08/03/2017, 12/01/2008. Findings: Dual-lead left chest wall cardiac connection device in similar position. Reactive mediastinal silhouettes are stable. There is fullness of the bilateral pulmonary fitz. No pleural effusion, pneumothorax or focal consolidation. There are stable right midlung interstitial opacities, likely scarring. Impression: 1. Stable bilateral hilar fullness, may represent lymphadenopathy. Clinical correlation is recommended. Nonemergent CT chest is recommended for further evaluation. 2. No acute cardiopulmonary abnormality. DICTATED AND SIGNED BY: DHARA LAMAR MD DATE: 10/09/17 4845 Course & Med Decision Making Course & Med Decision Making Patient has complaints of weakness and chest pain. She appears to have EKG changes although her older EKGs may have been paced. Patient will get labs chest x-ray and likely require admit that she is not able to eat or drink for the past 2 weeks. She paints a picture of quite the debility at home. Patient has multiple metabolic derangements in the setting of her debility and symptoms including chest pain she'll be admitted for further observation and treatment. She has possible EKG changes but her troponin is negative and her chest pain has been going on for more than 6 hours and she says it has been going on for at least the past several weeks. I doubt high-grade ischemia at this point. Patient will be admitted for further observation and treatment. Dr. Spivey accepted care of patient. Dragon Disclaimer Dragon Disclaimer This electronic medical record was generated, in whole or in part, using a voice recognition dictation system. Departure Departure: Impression: Primary Impression: Chest pain Additional Impressions: Hypomagnesemia Weakness generalized Hyponatremia Hypoalbuminemia Disposition: ADMITTED INPATIENT Admitting Physician: Severo Hernandez Condition: STABLE Referrals: PCP,UNKNOWN (PCP) Problem Qualifiers Primary Impression: Chest pain Chest pain type: unspecified Qualified Codes: R07.9 - Chest pain, unspecified NINFA TUCKER DO Oct 09, 2017 16:32
--- NOTE | 2017-10-09 17:02 | RAD ---
Single view chest 10/09/2017 Clinical indication: Chest pain and weakness. Comparison: Chest 08/03/2017, 12/01/2008. Findings: Dual-lead left chest wall cardiac connection device in similar position. Reactive mediastinal silhouettes are stable. There is fullness of the bilateral pulmonary fitz. No pleural effusion, pneumothorax or focal consolidation. There are stable right midlung interstitial opacities, likely scarring. Impression: 1. Stable bilateral hilar fullness, may represent lymphadenopathy. Clinical correlation is recommended. Nonemergent CT chest is recommended for further evaluation. 2. No acute cardiopulmonary abnormality.
--- NOTE | 2017-10-09 17:12 | EKG ---
[address] [address] Test Date: 2017-10-09 Test Time: 16:36:23 Pat Name: ELLE SIMMS Department: Room: Gender: F Operation Research Analyst: ZACH : 1960 Requested By: NINFA TUCKER Order Number: [id number] Reading MD: Measurements Intervals [place] Rate: 97 P: 66 TN: 226 QRS: 52 QRSD: 82 T: -116 QT: 340 QTc: 436 Interpretive Statements SINUS RHYTHM PROLONGED TN INTERVAL QRS(T) CONTOUR ABNORMALITY CONSIDER ANTEROLATERAL MYOCARDIAL DAMAGE ST & T ABNORMALITY, CONSIDER INFERIOR ISCHEMIA OR LEFT VENTRICULAR STRAIN T ABNORMALITY IN ANTERIOR LEADS ABNORMAL ECG RI6.01 No previous ECG available for comparison
[2017-10-09 17:30] LABS: BASO # 0.1 x10^3/uL (0.0-0.2); BASO % 1 % (0-3); EOS # 0.2 x10^3/uL (0.0-0.7); EOS % 4 % (0-3); HEMATOCRIT 31.4 % (36.0-47.0); HEMOGLOBIN 10.5 g/dL (12.0-15.5); LYMPH # 1.7 x10^3/uL (1.0-4.8); LYMPH % 35 % (24-48); MEAN CORPUSCULAR HEMOGLOBIN 31 pg (25-35); MEAN CORPUSCULAR HGB CONC 33 g/dL (31-37); MEAN CORPUSCULAR VOLUME 92 fL (79-100); MONO # 0.6 x10^3/uL (0.0-1.1); MONO % 14 % (0-9); NEUT # 2.2 x10^3uL (1.8-7.7); NEUT % 46 % (31-73); PLATELET COUNT 231 x10^3/uL (140-400); RED BLOOD COUNT 3.41 x10^6/uL (3.50-5.40); RED CELL DISTRIBUTION WIDTH 20.8 % (11.5-14.5); WHITE BLOOD COUNT 4.8 x10^3/uL (4.0-11.0)
[2017-10-09 17:34] LABS: ACETAMIN < 2 mcg/mL (10-30); ETHANOL < 10 mg/dL (0-10)
[2017-10-09 17:36] LABS: SALIC < 0.2 mg/dL (2.8-20.0)
[2017-10-09 17:39] LABS: ALBUMIN 2.4 g/dL (3.4-5.0); ALBUMIN/GLOBULIN RATIO 0.5 (1.0-1.7); CALCIUM 8.6 mg/dL (8.5-10.1); CREATININE 3.2 mg/dL (0.6-1.0); GFR 18.3; MAGNESIUM 1.4 mg/dL (1.8-2.4); POTASSIUM 3.6 mmol/L (3.5-5.1); TOTAL BILIRUBIN 1.6 mg/dL (0.2-1.0); TOTAL PROTEIN 7.2 g/dL (6.4-8.2)
[2017-10-09 17:56] LABS: INFLUENZA A PATIENT NEGATIVE (NEGATIVE); INFLUENZA B PATIENT NEGATIVE (NEGATIVE)
[2017-10-09] MEDS ORDERED: MAGNESIUM SULFATE 2GM 50 ML IV ONE (18:15)
[2017-10-09] MEDS ORDERED: MAGNESIUM OXIDE 400 MG TABLET PO ONE (18:15)
[2017-10-09] MEDS ORDERED: POTASSIUM CHLORIDE 20 MEQ TABLET.ER. PO ONE (18:15)
[2017-10-09] MEDS ORDERED: POTASSIUM CHLORIDE 30 MEQ in IV NORMAL SALINE 1,000ML 1,000 ML IV ONE (18:30)
--- NOTE | 2017-10-09 18:39 | NUR ---
NSG NOTE; ADMISSION ADMIT TO ROOM 113 FROM ED AT 1830 VIA CART ACCOMP BY EMS PERSONNEL C/O CHEST PRESSURE, NAUSEA/VOMITING, AND WEAKNESS X 2 WEEKS
[2017-10-09 18:40] VITALS: BP 102/71
[2017-10-09] MEDS: ONDANSETRON PF 4 MG/2 ML VIAL. IV PRN (19:59)
[2017-10-09] MEDS ORDERED: ALBU8.5H8 INH (20:25)
[2017-10-09] MEDS ORDERED: BETA15OI3 TP (20:25)
[2017-10-09] MEDS ORDERED: FOLI1TAB16 PO (20:25)
[2017-10-09] MEDS ORDERED: LIPITOR80 MG PO (20:25)
[2017-10-09] MEDS ORDERED: LANS30CA PO (20:25)
[2017-10-09] MEDS ORDERED: GABA-586 PO (20:25)
[2017-10-09] MEDS ORDERED: METO50TA4 PO (20:25)
[2017-10-09] MEDS ORDERED: NITR0.4T22 SL (20:25)
[2017-10-09] MEDS ORDERED: POLY17PO5 PO (20:25)
[2017-10-09] MEDS ORDERED: POTA20TA82 PO (20:25)
[2017-10-09] MEDS ORDERED: PROP150T2 PO (20:25)
[2017-10-09] MEDS ORDERED: ASPI-630 PO (20:25)
[2017-10-09] MEDS ORDERED: BETAMETHASONE DIPROP 0.05% TP PRN (20:45)
[2017-10-09] MEDS ORDERED: NITROGLYCERIN SUBLINGUAL 0.4 MG BOTTLE OF 25. SL PRN (20:45)
[2017-10-09] MEDS ORDERED: POLYETHYLENE GLYCOL 3350 17 GM PACKET. PO PRN (20:45)
[2017-10-09] MEDS ORDERED: ALBUTEROL SULFATE 8GM INHALER. INH PRN (20:45)
[2017-10-09] MEDS ORDERED: RANOLAZINE 500 MG TAB.ER.12H PO SCH (21:00)
[2017-10-09] MEDS ORDERED: NORTRIPTYLINE 25 MG CAPSULE PO SCH (21:00)
[2017-10-09] MEDS ORDERED: FERROUS SULFATE 325 MG TABLET. PO SCH (21:00)
[2017-10-09] MEDS ORDERED: POTASSIUM CHLORIDE 20 MEQ TABLET.ER. PO SCH (21:00)
[2017-10-09] MEDS ORDERED: NON FORMULARY ITEM (Pravastatin Sodium 1 TAB) PO SCH (21:00)
[2017-10-09] MEDS ORDERED: ALBUTEROL SULFATE 2.5 MG/3 ML NEBU. NEB PRN (21:00)
[2017-10-09] MEDS: GABAPENTIN 300 MG CAPSULE. PO SCH (21:47)
[2017-10-09] MEDS: RANOLAZINE 500 MG TAB.ER.12H PO SCH (21:48)
[2017-10-09] MEDS: PROPAFENONE 150 MG TABLET. PO SCH (21:48)
[2017-10-09 22:36] LABS: OVALOCYTES OCC; PLT ESTIMATE ADEQUATE (ADEQUATE); TARGET CELLS OCC
[2017-10-09 22:37] LABS: ANISOCYTOSIS MOD; TEAR DROP CELLS FEW
[2017-10-09 23:09] VITALS: BP 113/80
--- NOTE | 2017-10-09 23:38 | NUR ---
Placed pt's bag of home medication in the medication room.
[2017-10-10] MEDS: PROPAFENONE 150 MG TABLET. PO SCH ×3 (05:53→22:00)
[2017-10-10 06:04] VITALS: BP 93/57
--- NOTE | 2017-10-10 06:44 | NUR ---
pt bladder scanned 0mL found.
--- NOTE | 2017-10-10 08:12 | NUR ---
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
[2017-10-10 08:42] LABS: BASO # 0.1 x10^3/uL (0.0-0.2); BASO % 2 % (0-3); EOS # 0.2 x10^3/uL (0.0-0.7); EOS % 6 % (0-3); HEMATOCRIT 26.8 % (36.0-47.0); HEMOGLOBIN 8.8 g/dL (12.0-15.5); LYMPH % 30 % (24-48); MEAN CORPUSCULAR HEMOGLOBIN 31 pg (25-35); MEAN CORPUSCULAR HGB CONC 33 g/dL (31-37); MEAN CORPUSCULAR VOLUME 94 fL (79-100); MONO # 0.6 x10^3/uL (0.0-1.1); MONO % 17 % (0-9); NEUT # 1.6 x10^3uL (1.8-7.7); NEUT % 45 % (31-73); PLATELET COUNT 175 x10^3/uL (140-400); RED BLOOD COUNT 2.87 x10^6/uL (3.50-5.40); RED CELL DISTRIBUTION WIDTH 20.9 % (11.5-14.5); WHITE BLOOD COUNT 3.5 x10^3/uL (4.0-11.0)
[2017-10-10 08:57] LABS: CALCIUM 8.2 mg/dL (8.5-10.1); CREATININE 3.3 mg/dL (0.6-1.0); GFR 17.6
[2017-10-10] MEDS ORDERED: NON FORMULARY ITEM (Lansoprazole (Prevacid) 1 CAP) PO SCH (09:00)
[2017-10-10] MEDS ORDERED: predniSONE 10 MG TABLET PO SCH (09:00)
[2017-10-10] MEDS: POTASSIUM CHLORIDE 20 MEQ TABLET.ER. PO SCH (09:00)
[2017-10-10] MEDS ORDERED: METOPROLOL SUCC 24HR ER 50 MG TAB.ER.24H. PO SCH (09:00)
[2017-10-10] MEDS ORDERED: ALLOPURINOL 300 MG TABLET. PO SCH (09:00)
[2017-10-10] MEDS ORDERED: MAGNESIUM CHLORIDE 64 MG PO SCH (09:00)
[2017-10-10] MEDS ORDERED: METOPROLOL TART IMMED RELEASE 50 MG TABLET PO SCH (09:00)
[2017-10-10] MEDS ORDERED: NON FORMULARY ITEM (Metoprolol Succinate (Toprol Xl) 1 TAB) PO SCH (09:00)
[2017-10-10] MEDS ORDERED: MAGNESIUM CHLORIDE ER 64 MG TABLET.ER PO SCH (09:00)
[2017-10-10] MEDS ORDERED: LISINOPRIL 2.5 MG TABLET PO SCH ×2 (09:00)
[2017-10-10] MEDS ORDERED: PROPAFENONE 150 MG TABLET. PO SCH (09:00)
[2017-10-10] MEDS: predniSONE 10 MG TABLET PO SCH (09:54)
[2017-10-10] MEDS: RANOLAZINE 500 MG TAB.ER.12H PO SCH ×2 (09:54→21:00)
[2017-10-10] MEDS: ASPIRIN 81 MG TAB.CHEW PO SCH (09:55)
[2017-10-10] MEDS: FERROUS SULFATE 325 MG TABLET. PO SCH ×3 (09:56→21:57)
[2017-10-10] MEDS: GABAPENTIN 300 MG CAPSULE. PO SCH ×3 (09:56→21:59)
[2017-10-10] MEDS: PANTOPRAZOLE 40 MG TABLET. PO SCH (09:56)
[2017-10-10] MEDS: FOLIC ACID 1 MG TABLET PO SCH (09:56)
--- NOTE | 2017-10-10 09:58 | PDOC2 ---
NANCY FELICIANO INSTRUCTIONAL COORDINATOR 10/10/17 0958: CONSULT Date of Admission DATE: 10/10/17 TIME: 09:44 Reason for Consult: Chest pain Referring Physician: Dr Hernandez Problem List Problems Medical Problems: (1) Chest pain Status: Acute (2) Hypoalbuminemia Status: Acute (3) Hypomagnesemia Status: Acute (4) Hyponatremia Status: Acute (5) Weakness generalized Status: Acute History of Present Illness This is a pleasant 56-year-old female who presented to the emergency room with chief complaint of weakness and chest pressure. She has a past medical history of sarcoidosis and is on chronic prednisone therapy, paroxysmal atrial flutter on propafenone, coronary artery disease with minimal disease on previous cardiac catheterization in 2009, sick sinus syndrome status post pacemaker in 2008, hypertension and hyperlipidemia. Two weeks ago she came into the emergency room with weakness and was found to have a high potassium level. She was transferred to [facility] and was kept in ICU for 10 days. During that time she said she had a echocardiogram completed and was given multiple antibiotics and different medications. She was discharged home and has not done well since. She has been vomiting for the last week and very weak. She had a hard time climbing 1 flight of stairs and getting to the bathroom yesterday. When she would swallow her pills they were coming up completely intact so she does not feel like she has had her medication in the last week. Yesterday she started having pressure substernal region and she felt like it was due to vomiting. It was not associated with shortness of breath, nausea, vomiting or diaphoresis. It was not related to activity and did not radiate. Review of systems- She tells me that she has lost approximately 30 lb in the last month. Positive for nausea, vomiting and diarrhea. Positive for generalized weakness. She denies any cough, fever or chills. Further review of 10 organ systems is negative except for as in history of present illness Past Medical/Surgical History is significant for mild coronary artery disease, hypertension, high cholesterol, sick sinus syndrome status post pacemaker placement, atrial fibrillation - paroxysmal, valvular heart disease, sarcoidosis, anemia, congestive heart failure, peripheral vascular disease, chronic kidney disease and gastroesophageal reflux disease. Allergies-cefepime Social history she lives at home by herself she denies any alcohol, tobacco or drug use. Family history - her mom in her 40s of diabetes mellitus in her father had cancer. Physical Exam Patient is a 56-year-old female. GENERAL: This is a well developed, well nourished female. No apparent distress. SKIN: Warm and dry with normal skin turgor. Negative for pallor. No lesions or rashes noted. EYES: Conjunctiva are clear. Extraocular movements are intact. No xanthelasma. HEAD AND NECK: Oral mucosa is moist. There is no cyanosis. Neck is supple. Jugular venous pressure is flat. Carotid pulses are 2/2 bilaterally. No carotid bruits. There is no obvious thyromegaly. HEART: Regular rate and rhythm. Normal S1 and S2. No S3. No S4. No significant murmur. No rub. PMI is not displaced. LUNGS: Effort is good. There is symmetric expansion bilaterally. Clear to auscultation bilaterally. No wheezes. No crackles. No rhonchi. ABDOMEN: Normal active bowel sounds. Soft. Nontender. EXTREMITIES: No clubbing. No cyanosis. No edema of lower extremities. Palpable pedal pulses. MUSCULOSKELETAL: No kyphosis. No scoliosis. No localized tenderness or stiffness. Gait appears normal. NEUROLOGIC: Alert and oriented times three. Cranial nerves III-XII are grossly intact. Good motor tone and strength in the upper and lower extremities bilaterally. PSYCHOLOGIC: This is a pleasant patient with a normal affect Echocardiogram 08/14/15: Two-dimensional and M-mode echocardiogram with Doppler The left ventricular systolic function is normal. The Ejection Fraction is estimated at 55-60%. There is a flattened septum consistent with right ventricle volume and pressure overload. The right ventricle is mildly dilated. There is a pacemaker lead in the right atrium and right ventricle. Mild dilation of right and left atria. Transmitral Doppler flow pattern is Grade III restrictive diastolic dysfunction. Mild mitral regurgitation. Moderate-severe tricuspid regurgitation. There is no evidence of significant pericardial effusion. Echo 2D Spec/dop W/O Contrast 07/03/15: Low normal LV function. Ef 50-55% Moderate TR, suspect elevated RVSP (although could not obtain accurate gradient) Severe diasotlic dysfunction likely. Right ventricular pressure and volume overload. Right and Left Heart Cath W/LV 07/10/15: 1. Elevated biventricular filling pressures. 2. Mild pulmonary hypertension (mPA 34 mm Hg) 3. High cardiac output. 4. No evidence of constrictive physiology on hemodynamic measurements 5. Given elevated left ventricular filling pressures and mild pulmonary hypertension, there is no clear role for vasoreactivity testing. CT of the chest without contrast, 07/06/2015: 1. Small bilateral pleural effusions. 2. Bilateral interstitial and patchy airspace opacities probably representing pulmonary edema. A component of pneumonia cannot be excluded. 3. Several tiny bilateral pulmonary nodules are likely scars or granulomas, however, imaging is suggested to exclude a neoplastic process. 4. Small volume of ascites Bilateral lower extremity venous ultrasound, 07/06/2015: There is no sonographic evidence of deep vein thrombosis in either lower extremity. PACEMAKER GEN CHANGE 06/02/15: Successful pacemaker gen change. ECHOCARDIOGRAM IMPRESSION (05/29/2015):. Consistent with endocarditis involving a pacing lead. Severe tricuspid regurgitation, no vegetation obvious on the valve by trans- thoracic imaging. Moderate RA enlargement. Mildly enlarged RV, mild systolic dysfunction LV size and systolic function normal. JOSEFINA 06/01/15; Normal LV systolic function. Mild global RV hypokinesis. Mild RV enlargement. Severe right atrial enlargement. No evidence of vegetation or thrombus on the pacer leads. Severe tricuspid valve regrugitation. No evidence of endocarditis on the tricuspid valve leaflets. Normal appearing aortic, mitral and pulmonic valve without evidence of endocarditis. No pericardial effusion. LEXISCAN NUCLEAR STRESS TEST IMPRESSION (03/03/2013): Hemodynamic response was appropriate for IV Regadenosine. Clinical response: There was no chest pain during stress. Arrhythmias: Premature ventricular complexes. Stress ECG: Indeterminate due to the baseline abnormality. PERFUSION: SPECT imaging revealed normal perfusion without evidence of infarction or ischemia. Wall motion: Normal. However the inferior wall could not be assessed well. Ejection fraction: greater than 75%. Assessment / Plan Chest pain -FL ruled out. Likely muscular from her vomiting. Her pain has resolved today will continue to monitor. Consider outpatient stress testing. Congestive heart failure, chronic, diastolic. Clinically compensated at this time continue current medications. Coronary artery disease. The patient is doing well without any angina. We will continue optimal medical therapy. Atrial flutter, paroxysmal. The patient seems to be remaining in sinus rhythm. [id number] score is 2. Continue Aspirin for stroke prophylaxis. In the last 2 years she has had 11 minutes of atrial flutter on her pacemaker check today with the longest episode being 1 minutes in duration. She is very noncompliant with 25 no shows and not being seen for 2 years. I would feel very uncomfortable putting her on aggressive anticoagulation until she can be more compliant to follow-up and monitoring. Essential Hypertension, controlled. Continue present anti-hypertensive medication. Sick sinus syndrome s/p pacemaker - Appears to be functioning appropriately Current Medications Current Medications Magnesium Oxide (Magnesium Oxide) 800 mg 1X ONCE PO Last administered on at 18:06; Start 10/09/17 at 18:15; Stop 10/09/17 at 18:16; Status DC Magnesium Sulfate 50 ml @ 25 mls/hr 1X ONCE IV Last administered on 10/09/17at 19:58; Start 10/09/17 at 18:15; Stop 10/09/17 at 20:14; Status DC Potassium Chloride (Klor-Con) 40 meq 1X ONCE PO Last administered on 10/09/17at 18:06; Start 10/09/17 at 18:15; Stop 10/09/17 at 18:16; Status DC Ondansetron HCl (Zofran) 4 mg PRN Q4HRS PRN IV NAUSEA/VOMITING Last administered on 10/09/17at 19:59; Start 10/09/17 at 18:00; Stop 10/10/17 at 17:59 Fentanyl Citrate (Fentanyl 2ml Vial) 50 mcg PRN Q2HR PRN IV PAIN Last administered on 10/09/17at 21:49; Start 10/09/17 at 18:00; Stop 10/10/17 at 17:59 Potassium Chloride 30 meq/ Sodium Chloride 1,015 ml @ 75 mls/hr 1X ONCE IV Last administered on 10/09/17at 19:59; Start 10/09/17 at 18:30; Stop 10/10/17 at 08: 01; Status DC Allopurinol (Zyloprim) 300 mg DAILY PO ; Start 10/10/17 at 09:00; Stop 10/10/17 at 09:00; Status DC Ferrous Sulfate (Feosol) 325 mg TID PO ; Start 10/09/17 at 21:00; Stop 10/09/17 at 21:00; Status DC Lisinopril (Prinivil) 2.5 mg DAILY PO ; Start 10/10/17 at 09:00; Stop 10/10/17 at 09:00; Status DC Metoprolol Tartrate (Lopressor) 50 mg DAILY PO ; Start 10/10/17 at 09:00; Stop at 09:00; Status DC Nortriptyline HCl (Pamelor) 25 mg BID PO ; Start 10/09/17 at 21:00; Stop 10/09/17 at 21:00; Status DC Potassium Chloride (Klor-Con) 20 meq BID PO ; Start 10/09/17 at 21:00; Stop at 21:00; Status DC Prednisone (Prednisone) 10 mg DAILY PO ; Start 10/10/17 at 09:00; Stop 10/10/17 at 09:00; Status DC Propafenone HCl (Rythmol) 150 mg DAILY PO ; Start 10/10/17 at 09:00; Stop at 09:00; Status DC Ranolazine (Ranexa) 500 mg BID PO ; Start 10/09/17 at 21:00; Stop 10/09/17 at 21: 00; Status DC Torsemide (Demadex) 20 mg QODAY PO ; Start 10/11/17 at 09:00; Stop 10/11/17 at 09: 00; Status DC Non-Formulary Medication 1 cap DAILY PO ; Start 10/10/17 at 09:00; Stop 10/10/17 at 09:00; Status DC Non-Formulary Medication 1 tab DAILY PO ; Start 10/10/17 at 09:00; Stop 10/10/17 at 09:00; Status DC Non-Formulary Medication 1 tab QHS PO ; Start 10/09/17 at 21:00; Stop 10/09/17 at 21:00; Status DC Non-Formulary Medication 64 mg DAILY PO ; Start 10/10/17 at 09:00; Stop 10/10/17 at 09:00; Status DC Magnesium Chloride (Mag Delay) 64 mg DAILY PO ; Start 10/10/17 at 09:00; Stop 10/10/17 at 09:00; Status DC Albuterol Sulfate (Ventolin Hfa) 1 puff PRN Q6HRS PRN INH SHORTNESS OF BREATH; Start 10/09/17 at 20:45; Status UNV Aspirin (Children'S Aspirin) 81 mg DAILY PO ; Start 10/10/17 at 09:00 Betamethasone Dipropionate (Diprosone) 1 pau PRN BID PRN TP PAIN; Start at 20:45 Folic Acid (Folic Acid) 1 mg DAILY PO ; Start 10/10/17 at 09:00 Gabapentin (Neurontin) 300 mg TID PO Last administered on 10/09/17at 21:47; Start 10/09/17 at 21:00 Metoprolol Succinate (Toprol Xl) 50 mg DAILY PO ; Start 10/10/17 at 09:00 Nitroglycerin (Nitrostat) 0.4 mg PRN Q5MIN PRN SL CHEST PAIN; Start 10/09/17 at 20:45 Polyethylene Glycol (miraLAX) 17 gm PRN BID PRN PO CONSTIPATION; Start 10/09/17 at 20:45 Propafenone HCl (Rythmol) 150 mg Q8HRS PO Last administered on 10/10/17at 05:53; Start 10/09/17 at 22:00 Atorvastatin Calcium (Lipitor) 80 mg DAILY PO ; Start 10/10/17 at 09:00 Pantoprazole Sodium (Protonix) 40 mg DAILY PO ; Start 10/10/17 at 09:00 Potassium Chloride (Klor-Con) 20 meq DAILY PO ; Start 10/10/17 at 09:00 Albuterol Sulfate (Ventolin) 2.5 mg PRN Q6HRS PRN NEB SHORTNESS OF BREATH; Start 10/09/17 at 21:00 Ranolazine (Ranexa) 500 mg BID PO Last administered on 10/09/17at 21:48; Start at 21:15 Prednisone (Prednisone) 10 mg DAILY PO ; Start 10/10/17 at 09:00 Lisinopril (Prinivil) 2.5 mg DAILY PO ; Start 10/10/17 at 09:00 Ferrous Sulfate (Feosol) 325 mg TID PO ; Start 10/10/17 at 09:00 Active Scripts Active Feosol (Ferrous Sulfate) 325 Mg Tablet 325 Mg PO TID 30 Days Reported Proair Hfa Inhaler (Albuterol Sulfate) 8.5 Gm Hfa.aer.ad 1 Puff INH PRN Q6HRS PRN Propafenone Hcl 150 Mg Tablet 150 Mg PO Q8HR Potassium Chloride 20 Meq Tablet.er 20 Meq PO DAILY Miralax (Polyethylene Glycol 3350) 17 Gm Powd.pack 17 Gm PO PRN BID PRN NITROGLYCERIN SubLingual (Nitroglycerin) 0.4 Mg Tab.subl 0.4 Mg SL PRN Q5MIN PRN Toprol Xl (Metoprolol Succinate) 50 Mg Tab.er.24h 50 Mg PO DAILY Lansoprazole 30 Mg Capsule.dr 30 Mg PO DAILY Gabapentin 300 Mg Capsule 300 Mg PO TID Folic Acid 1 Mg Tablet 1 Mg PO DAILY Betamethasone Dipropionate 15 Gm Oint...g. 15 Gm TP PRN BID PRN Lipitor (Atorvastatin Calcium) 80 Mg Tablet 80 Mg PO DAILY Aspirin 81 Mg Tab.chew 81 Mg PO DAILY Lisinopril 2.5 Mg Tablet 1 Tab PO DAILY Ranexa (Ranolazine) 500 Mg Tab.er.12h 1 Tab PO BID Prednisone 10 Mg Tablet 10 Mg PO DAILY Allopurinol 300 Mg Tablet 300 Mg PO DAILY Allergies: Coded Allergies: cefepime (Verified Allergy, Severe, 10/09/17) I S O L A T I O N *CONTACT* (Verified Allergy, Unknown, 10/10/17) HX MRSA nares 11/27/08 VITALS Vital Signs Date Time Temp Pulse Resp B/P (MAP) Pulse Ox O2 Delivery O2 Flow Rate FiO2 10/10/17 06:04 98.6 79 20 93/57 (69) 95 Room Air Labs Laboratory Tests Test 10/09/17 17:00 10/09/17 17:05 10/09/17 20:00 10/10/17 02:10 White Blood Count 4.8 x10^3/uL (4.0-11.0) Red Blood Count 3.41 x10^6/uL (3.50-5.40) Hemoglobin 10.5 g/dL (12.0-15.5) Hematocrit 31.4 % (36.0-47.0) Mean Corpuscular Volume 92 fL (79-100) Mean Corpuscular Hemoglobin 31 pg (25-35) Mean Corpuscular Hemoglobin Concent 33 g/dL (31-37) Red Cell Distribution Width 20.8 % (11.5-14.5) Platelet Count 231 x10^3/uL (140-400) Neutrophils (%) (Auto) 46 % (31-73) Lymphocytes (%) (Auto) 35 % (24-48) Monocytes (%) (Auto) 14 % (0-9) Eosinophils (%) (Auto) 4 % (0-3) Basophils (%) (Auto) 1 % (0-3) Neutrophils # (Auto) 2.2 x10^3uL (1.8-7.7) Lymphocytes # (Auto) 1.7 x10^3/uL (1.0-4.8) Monocytes # (Auto) 0.6 x10^3/uL (0.0-1.1) Eosinophils # (Auto) 0.2 x10^3/uL (0.0-0.7) Basophils # (Auto) 0.1 x10^3/uL (0.0-0.2) Platelet Estimate Adequate (ADEQUATE) Anisocytosis Mod Target Cells Occ Tear Drop Cells Few Ovalocytes Occ Prothrombin Time 12.4 SEC (9.4-11.4) Prothromb Time International Ratio 1.2 (0.9-1.1) Activated Partial Thromboplast Time 25 SEC (23-33) Sodium Level 132 mmol/L (136-145) Potassium Level 3.6 mmol/L (3.5-5.1) Chloride Level 96 mmol/L (98-107) Carbon Dioxide Level 17 mmol/L (21-32) Anion Gap 19 (6-14) Blood Urea Nitrogen 20 mg/dL (7-20) Creatinine 3.2 mg/dL (0.6-1.0) Estimated GFR (Cockcroft-Gault) 18.3 BUN/Creatinine Ratio 6 (6-20) Glucose Level 90 mg/dL (70-99) Lactic Acid Level 1.6 mmol/L (0.4-2.0) Calcium Level 8.6 mg/dL (8.5-10.1) Magnesium Level 1.4 mg/dL (1.8-2.4) Total Bilirubin 1.6 mg/dL (0.2-1.0) Aspartate Amino Transf (AST/SGOT) 48 U/L (15-37) Alanine Aminotransferase (ALT/SGPT) 21 U/L (14-59) Alkaline Phosphatase 273 U/L (46-116) Creatine Kinase 16 U/L (26-192) Bedside Troponin I 0.00 ng/ml (<0.08) 0.00 ng/ml (<0.08) 0.11 ng/ml (<0.08) YL-Ajx-F-Type Natriuretic Peptide 1255 pg/mL (0-124) Total Protein 7.2 g/dL (6.4-8.2) Albumin 2.4 g/dL (3.4-5.0) Albumin/Globulin Ratio 0.5 (1.0-1.7) Lipase 181 U/L (73-393) Salicylates Level < 0.2 mg/dL (2.8-20.0) Salicylate Last Dose Date 10/09/17 Salicylate Last Dose Time Unknown Acetaminophen Level < 2 mcg/mL (10-30) Acetaminophen Last Dose Date 10/09/17 Acetaminophen Last Dose Time Unknown Ethyl Alcohol Level < 10 mg/dL (0-10) Influenza Type A (Rapid) Negative (NEGATIVE) Influenza Type B (Rapid) Negative (NEGATIVE) Test 10/10/17 08:30 White Blood Count 3.5 x10^3/uL (4.0-11.0) Red Blood Count 2.87 x10^6/uL (3.50-5.40) Hemoglobin 8.8 g/dL (12.0-15.5) Hematocrit 26.8 % (36.0-47.0) Mean Corpuscular Volume 94 fL (79-100) Mean Corpuscular Hemoglobin 31 pg (25-35) Mean Corpuscular Hemoglobin Concent 33 g/dL (31-37) Red Cell Distribution Width 20.9 % (11.5-14.5) Platelet Count 175 x10^3/uL (140-400) Neutrophils (%) (Auto) 45 % (31-73) Lymphocytes (%) (Auto) 30 % (24-48) Monocytes (%) (Auto) 17 % (0-9) Eosinophils (%) (Auto) 6 % (0-3) Basophils (%) (Auto) 2 % (0-3) Neutrophils # (Auto) 1.6 x10^3uL (1.8-7.7) Lymphocytes # (Auto) 1.0 x10^3/uL (1.0-4.8) Monocytes # (Auto) 0.6 x10^3/uL (0.0-1.1) Eosinophils # (Auto) 0.2 x10^3/uL (0.0-0.7) Basophils # (Auto) 0.1 x10^3/uL (0.0-0.2) Sodium Level 131 mmol/L (136-145) Potassium Level 5.0 mmol/L (3.5-5.1) Chloride Level 101 mmol/L (98-107) Carbon Dioxide Level 21 mmol/L (21-32) Anion Gap 9 (6-14) Blood Urea Nitrogen 20 mg/dL (7-20) Creatinine 3.3 mg/dL (0.6-1.0) Estimated GFR (Cockcroft-Gault) 17.6 Glucose Level 94 mg/dL (70-99) Calcium Level 8.2 mg/dL (8.5-10.1) Magnesium Level 2.1 mg/dL (1.8-2.4) Bedside Troponin I 0.01 ng/ml (<0.08) NINFA RAO Jr, MD 10/10/17 1016: CONSULT Reason for Consult: Chest pain. Referring Physician: Severo Hernandez MD Chief Complaint Chest pain. Source: Patient History of Present Illness She is a pleasant 56-year-old female who is known to our service. However, she has not been seen in our office in approximately the past 2 years. She has had multiple no shows for her appointments. None the less, she states for approximately the past 10 days she has been having nausea and vomiting. She has had almost nothing to eat. Even drinking walker for taking her medications was causing her to vomit. She had muscular abdominal pain due to all of the vomiting. However, she denies any intra-abdominal type pain. She had been having some mild constipation and diarrhea, but this resolved. She denies any hematemesis or hematochezia. She feels as though she has been having chest pain because she feels dehydrated. She has been having some dyspnea on exertion , paroxysmal nocturnal dyspnea, and orthopnea. This has been going on for the past few days. Because of the ongoing nausea and vomiting, she came to the hospital for further evaluation. She denies any palpitations, lightheadedness, syncope, or lower extremity edema. Because of the chest pain, a cardiology consultation was requested. Allergies: Coded Allergies: cefepime (Verified Allergy, Severe, 10/09/17) I S O L A T I O N *CONTACT* (Verified Allergy, Unknown, 10/10/17) HX MRSA nares 11/27/08 Review of System Review of 10 organ systems is as per the HPI, otherwise negative. General: Alert, Oriented X3, Cooperative, No acute distress HEENT: Atraumatic, EOMI, Mucous membr. moist/pink Lungs: Clear to auscultation, Normal air movement Heart: Regular rate, Normal S1, Normal S2, No murmurs Abdomen: Normal bowel sounds, Soft, No tenderness, No hepatospenomegaly Extremities: No clubbing, No cyanosis, No edema, Normal pulses, No tenderness/ swelling Skin: No rashes, No breakdown, No significant lesion Neuro: Normal speech, Strength at 5/5 X4 ext, Normal tone, Cranial nerves 3-12 NL Psych/Mental Status: Mental status NL, Mood NL Assessment/Plan Chest pain. She had 3-cardiac troponin levels. She has some anterior T-wave inversion on electrocardiogram but this is probably related to intermittent, chronic ventricular pacing. I suspect the chest pain is noncardiac in origin related to her nausea and vomiting. No additional cardiac testing is indicated for this problem at this point in time. I will request copies of any recent records from [facility] when she was there in August. CHF, chronic, with preserved ejection fraction. If anything, she is presently dehydrated. She is currently receiving IV fluids for rehydration. Once the IV fluids are completed, I recommend she resume her regular outpatient cardiac medication. Atrial fibrillation, paroxysmal. She appears to be in a sinus rhythm. We do not have her on oral anticoagulation due to noncompliance with follow-up. If she can start being compliant with follow-up visits, we could consider placing her on oral anticoagulation. For the time being, she should continue on aspirin for stroke prevention, realizing this is not the ideal medication given her [id number] score. Essential hypertension. Blood pressure appears reasonably controlled with the present medication. The should be continued. Sick sinus syndrome. From what I can tell, her pacemaker appears to be functioning normally. The represents of from the pacemaker company is actually here today in [place]. I have asked him to come check her pacemaker here in the hospital. Disposition. When she receives her intravenous hydration and becomes euvolemic , I suspect she may be able to be discharged home. We will again attempt to get her to follow up in our office within the next month after discharge. Problems: NANCY FELICIANO APRN Oct 10, 2017 09:58 NINFA RAO Jr, MD Oct 10, 2017 10:16
--- NOTE | 2017-10-10 09:59 | HP ---
ADMIT DATE: 10/09/2017 HISTORY OF PRESENT ILLNESS: A 56-year-old female came in with generalized weakness and chest pain, substernal chest pain radiating to her neck. The patient recently has been at [facility] with severe hyperkalemia I believe. The patient came back, she was still feeling nauseated and vomiting, inability to eat or drink anything, takedown pills for the last couple of days. The patient has a history of sarcoid. She has been unable to move around at home and has a great deal of difficulty with generalized deterioration. PAST MEDICAL HISTORY: Includes congestive heart failure, coronary artery disease, peripheral vascular disease, pacemaker, hypertension, ulcers, GERD, renal disease, dialysis one time, sarcoid, ____ anemia. Tetanus, influenza, pneumococcal vaccines are all up-to-date. FAMILY HISTORY: Positive for cancer and type 2 diabetes with mother. ALLERGIES: CEFEPIME. The patient is a full code. MEDICATIONS: Include albuterol, ProAir inhaler, allopurinol 300 mg a day, aspirin 81, atorvastatin 80 mg a day, betamethasone of 15 grams daily, ferrous sulfate 325, folic acid, gabapentin 300 t.i.d., Prevacid 30 mg a day, lisinopril 2.5 daily, metoprolol 50 daily, nitroglycerin 0.4 sublingual, polyethylene glycol, potassium chloride 20 mEq daily, prednisone 10, propafenone hydrochloride 150 mg q.8h. and Ranexa 500 mg q.12h. SOCIAL HISTORY: The patient denies smoking, alcohol or drug use. REVIEW OF SYSTEMS: Denies headaches, visual change, generalized weakness; however, does have some shortness of breath and chest pain as noted. The patient otherwise does have some nausea and diffuse abdominal discomfort. Neurologically, baseline for her and stable. Denies diarrhea, constipation, melena, hematochezia, hematemesis or seizure activity. PHYSICAL EXAMINATION: GENERAL: A pleasant -Dutch female in no apparent distress. VITAL SIGNS: Blood pressure approximately 100/57, respiratory rate 20, pulse 80, afebrile. HEENT: The patient's head was atraumatic, normocephalic. Eyes, PERRLA without jaundice. The mouth and throat were normal. NECK: Supple, without JVD, carotid bruits or thyromegaly. LUNGS: Diminished throughout, but clear. CARDIOVASCULAR: Regular sinus rhythm, S1, S2, without murmur, rub, thrill, or extra heart sound. ABDOMEN: Soft, nontender. EXTREMITIES: No clubbing, cyanosis or edema. NEUROLOGIC: The patient was alert and oriented x 3. Speech fluent, spontaneous, appropriate. Cranial nerves 2-12 grossly intact. LABORATORY DATA: The patient's lab showed hemoglobin of approximately 8.8 and 26, chemistries showed a creatinine elevated at 3.3. Influenza negative. Chest x-ray unremarkable. Cardiac enzymes so far unremarkable. IMPRESSION: Chest pain, sarcoid, generalized weakness, debilitation. PLAN: The patient will be monitored and rule out NH protocol. We will get CT scan of the chest per recommendation of chest x-ray. Consult with Dr. Mcconnell and make further assessment on her as indicated. KELLEN DARLING MD DR: NUNU/armida JOB#: [id number] / [id number]
[2017-10-10 10:00] VITALS: BP 88/60
[2017-10-10] MEDS: ATORVASTATIN CALCIUM 20 MG TABLET PO SCH (12:40)
[2017-10-10] MEDS: ONDANSETRON PF 4 MG/2 ML VIAL. IV PRN (12:40)
--- NOTE | 2017-10-10 12:57 | RAD ---
CT CHEST WO CONTRAST Indication: Hilar adenopathy Technique: Noncontrast CT imaging was performed of the chest, multiplanar reconstruction images submitted. One or more of the following individualized dose reduction techniques were utilized for this examination: 1. Automated exposure control 2. Adjustment of the mA and/or kV according to patient size 3. Use of iterative reconstruction technique. Contrast: None Comparison: 07/30/2015 Findings: There are trace dependent pleural effusions bilaterally, previously larger pleural effusions present. Heart is enlarged. There is left electronic cardiac device. There is no pneumothorax. There is no pericardial effusion. There are multiple partially calcified hilar nodes bilaterally, somewhat difficult to evaluate for noncalcified nodes without intravenous contrast. There is some infrahilar density of the right as seen axial image 26 at which there is likely component of noncalcified lymphadenopathy although otherwise difficult to measure as also in the region of right interlobar artery, not obviously larger. There is again subcarinal lymphadenopathy overall probably unchanged, up to about 1.7 cm short axis dimension. There is superior right paratracheal apparent apparently larger than previously, not considered significantly enlarged in short axis dimension at 0.8-0.9 cm. There is again perihilar density with associated perihilar bronchial wall thickening, present previously. However there is decreased left upper lobe perihilar density, also decreased of the right upper lobe. There is also some residual although decreased central right middle lobe infiltrate. There is some hazy groundglass density of the perihilar regions bilaterally. 0.6 m focus of nodularity the right upper lobe axial image 22 is difficult to compare as previously greater degree of adjacent infiltrate. There are some tiny peripheral nodules of the right lower lobe. There are some areas of reticular density of the lower lobes bilaterally although decreased. IMPRESSION: 1. As seen on 2015 exam, there are some calcified nodes. There is also noncalcified lymphadenopathy, somewhat difficult to accurately compare without intravenous contrast. Subcarinal lymphadenopathy is similar. Superior right paratracheal node is larger although not considered significantly enlarged. There are trace dependent pleural effusions bilaterally, decreased size in the interval. There is decreased perihilar infiltrative density. There is more discrete right upper lobe nodule although difficult to accurately compare as more infiltrate at this location previously. There is residual groundglass density of the parenchyma possibly due to edema given the enlarged heart. Electronically signed by: Yoan Kim MD (10/10/2017 12:54 PM) [id number]
[2017-10-10] MEDS: IV NORMAL SALINE 1,000ML 1,000 ML IV SCH (13:06)
[2017-10-10 16:20] VITALS: BP 90/47
[2017-10-10 19:00] VITALS: BP 105/53
[2017-10-10 23:06] VITALS: BP 90/54
[2017-10-11] MEDS: IV NORMAL SALINE 1,000ML 1,000 ML IV SCH (02:20)
[2017-10-11 05:17] VITALS: BP 94/54
[2017-10-11] MEDS: PROPAFENONE 150 MG TABLET. PO SCH (05:48)
[2017-10-11 06:26] LABS: BASO % 2 % (0-3); EOS # 0.1 x10^3/uL (0.0-0.7); EOS % 5 % (0-3); HEMATOCRIT 26.1 % (36.0-47.0); HEMOGLOBIN 8.7 g/dL (12.0-15.5); LYMPH # 0.9 x10^3/uL (1.0-4.8); LYMPH % 35 % (24-48); MEAN CORPUSCULAR HEMOGLOBIN 31 pg (25-35); MEAN CORPUSCULAR HGB CONC 33 g/dL (31-37); MEAN CORPUSCULAR VOLUME 95 fL (79-100); MONO # 0.4 x10^3/uL (0.0-1.1); MONO % 16 % (0-9); NEUT # 1.1 x10^3uL (1.8-7.7); NEUT % 42 % (31-73); PLATELET COUNT 178 x10^3/uL (140-400); RED BLOOD COUNT 2.76 x10^6/uL (3.50-5.40); RED CELL DISTRIBUTION WIDTH 20.4 % (11.5-14.5); WHITE BLOOD COUNT 2.6 x10^3/uL (4.0-11.0)
[2017-10-11 06:34] LABS: CREATININE 3.4 mg/dL (0.6-1.0); POTASSIUM 4.7 mmol/L (3.5-5.1)
[2017-10-11] MEDS: POTASSIUM CHLORIDE 20 MEQ TABLET.ER. PO SCH (08:43)
[2017-10-11] MEDS: FOLIC ACID 1 MG TABLET PO SCH (08:43)
[2017-10-11] MEDS: ASPIRIN 81 MG TAB.CHEW PO SCH (08:44)
[2017-10-11] MEDS: FERROUS SULFATE 325 MG TABLET. PO SCH (08:44)
[2017-10-11] MEDS: GABAPENTIN 300 MG CAPSULE. PO SCH (08:44)
[2017-10-11] MEDS: ATORVASTATIN CALCIUM 20 MG TABLET PO SCH (08:45)
[2017-10-11] MEDS: predniSONE 10 MG TABLET PO SCH (08:45)
[2017-10-11] MEDS: PANTOPRAZOLE 40 MG TABLET. PO SCH (08:45)
[2017-10-11] MEDS ORDERED: TORSEMIDE 20 MG TABLET. PO SCH (09:00)
[2017-10-11] MEDS ORDERED: BETH10TA PO (09:51)
--- NOTE | 2017-10-11 10:38 | NUR ---
NSG NOTE; DISCHARGE VERBAL AND WRITTEN DISCHARGE INSTRUCTIONS GIVEN TO PT WITH VERBAL UNDERSTANDING. NEW RX TRANSMITTED TO PT'S PHARMACY DISCHARGE TO HOME VIA W/C ACCOMP BY FRIEND AT [id number]
[2017-10-11] MEDS ORDERED: BETHANECHOL CHLORIDE 10 MG TABLET PO SCH (11:30)
--- NOTE | 2017-10-13 22:01 | DS ---
DATE OF DISCHARGE: 10/11/2017 HOSPITAL COURSE: A 56-year-old female with history of sarcoid, came in with generalized weakness, chest pain, substernal chest pain radiating to her neck. The patient recently has been treated at for hyperkalemia, although when she had discharge, she felt nauseated, came in for the chest pain. The patient was admitted. Labs were noted. She was anemic at 8.7. Potassium was good. Sodium was slightly low. Thyroid was good. The patient made good progress during the rest of her hospitalization. CT of the chest basically unremarkable. She made good progress during the rest of her hospitalization. She will follow up with her public health dietitian. She was also seen here by Cardiology. IMPRESSION: Chest pain, atrial fibrillation, paroxysmal; sarcoid, acute renal failure. DISCHARGE INSTRUCTIONS: The patient will be discharged home. Follow up as an outpatient. Make further evaluation on her as an outpatient. MEDICATIONS: See MRAD. DIET: She will be on a kidney special diet, low protein. KELLEN DARLING MD DR: NUNU/armida JOB#: [id number] / [id number]
== END 2017-10-11 10:36 | disposition home or self-care (01) | DRG 682 ==
LOC: ER 16:22 → 1 SOUTH 18:07
PROVIDERS: ADMIT Family Medicine; ATTEND Family Medicine
DX: N17.9 Acute kidney failure, unspecified (principal); E43 Unspecified severe protein-calorie malnutrition; I13.0 Hypertensive heart and chronic kidney disease with heart failure and stage 1 through stage 4 chronic kidney disease, or unspecified chronic kidney disease; I49.5 Sick sinus syndrome; I50.32 Chronic diastolic (congestive) heart failure; I48.0 Paroxysmal atrial fibrillation; E87.1 Hypo-osmolality and hyponatremia; I48.92 Unspecified atrial flutter; E83.42 Hypomagnesemia; E86.0 Dehydration; D86.9 Sarcoidosis, unspecified; E78.00 Pure hypercholesterolemia, unspecified; E78.5 Hyperlipidemia, unspecified; I25.10 Atherosclerotic heart disease of native coronary artery without angina pectoris; K21.9 Gastro-esophageal reflux disease without esophagitis; I73.9 Peripheral vascular disease, unspecified; N18.9 Chronic kidney disease, unspecified; Z91.19 Patient's noncompliance with other medical treatment and regimen; Z79.52 Long term (current) use of systemic steroids; Z80.9 Family history of malignant neoplasm, unspecified; Z83.3 Family history of diabetes mellitus; Z95.0 Presence of cardiac pacemaker; Z88.1 Allergy status to other antibiotic agents; Z79.899 Other long term (current) drug therapy; Z79.82 Long term (current) use of aspirin; D64.9 Anemia, unspecified
CPT/HCPCS: 36415; 71045; 71250; 80048; 80053; 82550; 83605; 83690; 83735; 83880; 84443; 84484; 85025; 85610; 85730; 87040; 87804; 93005; G0480; J2405; J3010; J3475; J7512; 99285-25; J7030

== ENCOUNTER 2017-11-02 13:40 | Emergency (ER) | payer MEDICARE, OTHER ==
[~2017-11-02] VITALS: Ht 157.5 cm; Wt 85.0 kg
[~2017-11-02 13:40] MED LIST changes: +ALBU8.5H8 INH; +ASPI-630 PO; +BETA15OI3 TP; +BETH10TA PO; +LANS30CA PO; +LIPITOR80 MG PO; +METO50TA4 PO; +NITR0.4T22 SL; +POLY17PO5 PO; +POTA20TA82 PO
[2017-11-02] MEDS ORDERED: IV NORMAL SALINE 1,000ML 1,000 ML IV SCH (13:49)
[2017-11-02] MEDS ORDERED: 0.9 % SODIUM CHLORIDE 10 ML DISP.SYRIN. IV PRN (14:00)
[2017-11-02] MEDS ORDERED: ONDANSETRON PF 4 MG/2 ML VIAL. IV ONE (14:15)
[2017-11-02] MEDS ORDERED: PANTOPRAZOLE IV 40 MG VIAL. IVP ONE (14:15)
[2017-11-02] MEDS ORDERED: IV NORMAL SALINE 1,000ML 1,000 ML IV ONE (15:00)
[2017-11-02 15:01] LABS: HEMOGLOBIN ISTAT 10.5 gm/dL; POTASSIUM ISTAT 5.7 mmol/L (3.5-5.0)
[2017-11-02] MEDS ORDERED: IV NORMAL SALINE 50ML 50 ML ONE (15:04)
[2017-11-02] MEDS ORDERED: IV NORMAL SALINE 250ML 250 ML ONE (15:04)
[2017-11-02] MEDS ORDERED: PIPERACILLIN/TAZOBACTAM 3.375 GM VIAL IV ONE (15:05)
[2017-11-02] MEDS ORDERED: NOREPINEPHRINE BITARTRATE 4 MG/4 ML VIAL. IV ONE (15:05)
--- NOTE | 2017-11-02 15:12 | PHYS DOC ---
Past History Past Medical History: Arrhythmia, CAD, CHF, High Cholesterol, Hypertension, Hypotension, Renal Failure, Other Additional Past Medical Histor: Sarcoidosis Past Surgical History: Other Smoking: Non-smoker Alcohol Use: None Drug Use: None Adult General Chief Complaint Chief Complaint: Dehydration HPI HPI 56-year-old female patient brought in by EMS because of dehydration and altered level of consciousness. Patient is not able to give history and EMS reported that they were told that patient had recent hospitalization and has dehydration. EMS reported patient had black stool temperature of 101. Grade 2 PM patient was admitted on October 09 with diagnose of chest pain and generalized weakness and had BUN of 19 and creatinine of 3.3 and hemoglobin of 8.7. There was no family member available in ER to give additional history. Review of Systems Review of Systems Unable to obtain because of medical condition Current Medications Current Medications Current Medications Medications (Trade) Dose Ordered Sig/James Start Time Stop Time Status Last Admin Dose Admin Albuterol Sulfate (Ventolin) 10 mg 1X ONCE 11/02/17 15:30 11/02/17 15:31 Norepinephrine Bitartrate (Levophed) 4 mg STK-MED ONCE 11/02/17 15:05 11/02/17 15:06 DC Norepinephrine Bitartrate 8 mg/ Sodium Chloride 258 ml @ 1.93 mls/hr CONT PRN 11/02/17 15:15 Ondansetron HCl (Zofran) 4 mg 1X ONCE 11/02/17 14:15 11/02/17 14:16 DC Pantoprazole Sodium (Protonix Vial) 40 mg 1X ONCE 11/02/17 14:15 11/02/17 14:16 DC Piperacillin Sod/ Tazobactam Sod (Zosyn) 3.375 gm STK-MED ONCE 11/02/17 15:05 11/02/17 15:06 DC Piperacillin Sod/ Tazobactam Sod 3.375 gm/Sodium Chloride 50 ml @ 100 mls/hr 1X ONCE 11/02/17 15:15 11/02/17 15:44 Sodium Chloride 50 ml @ As Directed STK-MED ONCE 11/02/17 15:04 11/02/17 15:05 DC Sodium Chloride (Normal Saline Flush) 10 ml QSHIFT PRN 11/02/17 14:00 Allergies Allergies Allergies Coded Allergies Type Severity Reaction Last Updated Verified cefepime Allergy Severe 10/09/17 Yes I S O L A T I O N *CONTACT* Allergy Unknown 10/10/17 Yes Physical Exam Physical Exam Constitutional: Moderate distress, very dry, afebrile, does not answer to questions but keep her eyes open HENT: Normocephalic, atraumatic, dry oral mucosa[] Eyes: PERRLA, EOMI, conjunctiva normal, no discharge. [] Neck: Normal range of motion, no tenderness, supple, no stridor. [] Cardiovascular:Heart rate regular rhythm, no murmur [] Lungs & Thorax: Decrease of air movement in bilateral bases, no acute respiratory distress Abdomen: Bowel sounds normal, soft, no tenderness, no masses, no pulsatile masses. [] Skin: Warm, dry, no erythema, no rash. [] Extremities: No deformity or edema Neurologic: Alert and awake, does not answer the question but talking and complaining of pain when touching any part of her body, moves all extremities Current Patient Data Lab Results Laboratory Tests Test 11/02/17 14:57 POC Hemoglobin 10.5 gm/dL POC Hematocrit 31 % POC Sodium 133 mmol/L (135-145) L POC Potassium 5.7 mmol/L (3.5-5.0) H POC Chloride 112 mmol/L (98-110) H POC Total CO2 12 mmol/L (23-32) L Anion Gap 16 mmol/L (6-14) H POC Blood Urea Nitrogen 64 mg/dL (8-26) H POC Creatinine 9.0 mg/dL (0.5-1.4) H Glucose Level 79 mg/dL (60-99) POC Ionized Calcium (Raul) 0.81 mmol/L (1.13-1.32) L EKG EKG EKG interpreted by me. EKG at 1402 showed sinus rhythm at rate of 86, ST depression in inferior leads, T abnormality lateral leads, no acute ST and T wave abnormality[] Radiology/Procedures Radiology/Procedures [] Course & Med Decision Making Course & Med Decision Making Pertinent Labs reviewed. (See chart for details) Evaluation of patient in ER showed 56-year-old female patient brought in by EMS because of dehydration. Patient had blood pressure of 90s at arrival to ER without fever but was not talking and was very dehydrated. Patient had 2 IVs An IV fluid was given. [id number] CMP showed UL of 64 and creatinine of 9. Patient had creatinine of 3.3 in her previous hospitalization on October 09. Potassium was 5.7 and albuterol inhaler was given. By patient taking medication for blood pressure dropped to 60s and Levophed was started and blood pressure increased to 90s again. accepted transfer to [facility] at 1507. [] Dragon Disclaimer Dragon Disclaimer This electronic medical record was generated, in whole or in part, using a voice recognition dictation system. Departure Departure: Impression: Primary Impression: Acute on chronic renal failure Additional Impressions: Severe dehydration Hyperkalemia Altered level of consciousness Disposition: XFER [facility] (with this hospital at 1507) Condition: GUARDED Referrals: PCP,NO (PCP) Critical Care Time Critical care time was [120] minutes exclusive of procedures. Problem Qualifiers DORENE LOPEZ MD Nov 02, 2017 15:12
[2017-11-02] MEDS ORDERED: NOREPINEPHRINE BITARTRATE 8 MG in IV NORMAL SALINE 250ML 250 ML IV PRN (15:15)
[2017-11-02] MEDS ORDERED: PIPERACILLIN/TAZOBACTAM 3.375 GM in IV NORMAL SALINE 50ML 50 ML IV ONE (15:15)
[2017-11-02 15:16] LABS: AMPHETAMINE/METHAMPHETAMINE NEG (NEG); BARBITURATES NEG (NEG); BENZODIAZEPINES NEG (NEG); CANNABINOIDS NEG (NEG); COCAINE NEG (NEG); METHADONE NEG (NEG); OPIATES NEG (NEG); PHENCYCLIDINE NEG (NEG)
[2017-11-02 15:24] LABS: BILIRUBIN,URINE NEG (NEG); CLARITY,URINE HAZY; COLOR,URINE AMBER
[2017-11-02 15:25] LABS: BACTERIA,URINE 0 /HPF (0-FEW); RBC,URINE 20-40 /HPF (0-2); SQUAMOUS EPITHELIAL CELL,UR FEW /LPF; WBC,URINE OCC /HPF (0-4)
[2017-11-02 15:26] LABS: HYALINE CASTS, URINE FEW /HPF
[2017-11-02] MEDS ORDERED: ALBUTEROL SULFATE 2.5 MG/3 ML NEBU. CONT NEB ONE (15:30)
[2017-11-02 15:44] LABS: BASO # 0.1 x10^3/uL (0.0-0.2); BASO % 1 % (0-3); EOS % 0 % (0-3); HEMATOCRIT 27.6 % (36.0-47.0); HEMOGLOBIN 9.1 g/dL (12.0-15.5); LYMPH # 0.6 x10^3/uL (1.0-4.8); LYMPH % 8 % (24-48); MEAN CORPUSCULAR HEMOGLOBIN 30 pg (25-35); MEAN CORPUSCULAR HGB CONC 33 g/dL (31-37); MEAN CORPUSCULAR VOLUME 91 fL (79-100); MONO # 0.5 x10^3/uL (0.0-1.1); MONO % 6 % (0-9); NEUT # 6.9 x10^3uL (1.8-7.7); NEUT % 86 % (31-73); PLATELET COUNT 183 x10^3/uL (140-400); RED BLOOD COUNT 3.04 x10^6/uL (3.50-5.40); RED CELL DISTRIBUTION WIDTH 18.7 % (11.5-14.5)
[2017-11-02 16:00] LABS: FECAL OB PT NEGATIVE (NEG)
[2017-11-02 16:09] LABS: ALBUMIN 1.8 g/dL (3.4-5.0); ALBUMIN/GLOBULIN RATIO 0.4 (1.0-1.7); CALCIUM 8.8 mg/dL (8.5-10.1); GFR 5.5; POTASSIUM 5.8 mmol/L (3.5-5.1); TOTAL BILIRUBIN 3.1 mg/dL (0.2-1.0); TOTAL PROTEIN 6.8 g/dL (6.4-8.2)
--- NOTE | 2017-11-02 16:29 | EKG ---
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
[2017-11-02 16:31] VITALS: BP 98/80
[2017-11-02 17:35] LABS: % BANDS 8 % (0-9); % EOS 1 % (0-5); % LYMPHS 3 % (24-48); % MONOS 8 % (0-10); % SEGS 75 % (35-66)
[2017-11-02 17:40] LABS: PLT ESTIMATE ADEQUATE (ADEQUATE)
[2017-11-02 17:59] LABS: TARGET CELLS FEW; TEAR DROP CELLS FEW
[2017-11-02 18:02] LABS: OVALOCYTES FEW
[2017-11-02 18:08] LABS: BURR CELLS FEW
[2017-11-02 18:14] LABS: ANISOCYTOSIS SLIGHT; POLYCHROMASIA PRESENT
[2017-11-02 18:18] LABS: SCHISTOCYTES FEW
[2017-11-02 18:21] LABS: TOXIC GRANULATION PRESENT; TOXIC VACUOLATION PRESENT
[2017-11-02 18:24] LABS: % ATYL 5 % (0-0)
== END 2017-11-02 16:38 | disposition short-term general hospital (02) ==
LOC: ER 13:40
DX: N17.9 Acute kidney failure, unspecified (principal); I13.0 Hypertensive heart and chronic kidney disease with heart failure and stage 1 through stage 4 chronic kidney disease, or unspecified chronic kidney disease; N18.9 Chronic kidney disease, unspecified; I50.9 Heart failure, unspecified; I25.10 Atherosclerotic heart disease of native coronary artery without angina pectoris; E86.0 Dehydration; E87.5 Hyperkalemia; E78.00 Pure hypercholesterolemia, unspecified; Z88.8 Allergy status to other drugs, medicaments and biological substances; Z91.041 Radiographic dye allergy status
CPT/HCPCS: 36415; 51702; 80047; 80053; 80307; 81001; 82140; 82274; 82553; 83605; 83690; 84484; 85007; 85025; 85610; 85730; 87040; 93005; 94640; 96361; 96365; 96374; 96375; 99291; 99292; C9113; J2405; J2543; J7050; J7613; G0479; J7030

== ENCOUNTER 2017-11-10 15:00 | Inpatient (IN) | payer MEDICARE, OTHER ==
[~2017-11-10] VITALS: Ht 157.5 cm; Wt 93.0 kg
[2017-11-10 17:58] VITALS: BP 133/86
--- NOTE | 2017-11-10 18:47 | RAD ---
AP view abdomen 11/10/2017 Clinical indication: Evaluate Dobbhoff placement. COMPARISON: None. FINDINGS: Single portable supine AP view of the upper abdomen demonstrating a Dobbhoff tube below the level the hemidiaphragms with the distal tip overlying the 1st portion of the duodenum. Right upper quadrant cholecystectomy clips. There is a nonobstructive bowel gas pattern in the visualized portions. IMPRESSION: Dobbhoff tube with distal tip overlying the level of the 1st portion duodenum. Electronically signed by: Pal Brunner MD (11/10/2017 6:44 PM) [facility]
[2017-11-10] MEDS ORDERED: BETAMETHASONE DIPROP 0.05% TP PRN (19:45)
[2017-11-10] MEDS ORDERED: NITROGLYCERIN SUBLINGUAL 0.4 MG BOTTLE OF 25. SL PRN (19:45)
[2017-11-10] MEDS ORDERED: ALBUTEROL SULFATE 8GM INHALER. INH PRN (19:45)
[2017-11-10] MEDS ORDERED: POLYETHYLENE GLYCOL 3350 17 GM PACKET. PEG PRN (19:45)
[2017-11-10] MEDS ORDERED: PEG15DRO2 OU (20:04)
[2017-11-10] MEDS ORDERED: IPRA3AMP NEB (20:04)
[2017-11-10] MEDS ORDERED: AMOX1TAB58 PO (20:04)
[2017-11-10] MEDS: IPRATRPIUM/ALBUTEROL 0.5/2.5MG 3 ML NEBU. NEB SCH (20:14)
[2017-11-10] MEDS ORDERED: ALBUTEROL SULFATE 2.5 MG/3 ML NEBU. NEB PRN (20:30)
[2017-11-10] MEDS: RANOLAZINE 500 MG TAB.ER.12H PO SCH (20:52)
[2017-11-10] MEDS: FERROUS SULFATE 325 MG TABLET. PO SCH (21:05)
[2017-11-10] MEDS: ATORVASTATIN CALCIUM 20 MG TABLET PEG SCH (21:05)
[2017-11-10] MEDS: PROPAFENONE 150 MG TABLET. PO SCH (21:06)
[2017-11-10] MEDS: AMOXICILLIN/K CLAV 500/125MG TABLET. PO SCH (21:06)
[2017-11-10] MEDS: POLYVINYL ALCOHOL 1.4% OPHTH SOLUTION 15ML BOTTLE. OU SCH (21:06)
[2017-11-11] MEDS: IPRATRPIUM/ALBUTEROL 0.5/2.5MG 3 ML NEBU. NEB SCH ×4 (05:06→22:20)
[2017-11-11 06:00] VITALS: BP 124/84
[2017-11-11 06:53] LABS: BASO % 0 % (0-3); EOS % 0 % (0-3); HEMATOCRIT 28.1 % (36.0-47.0); HEMOGLOBIN 9.4 g/dL (12.0-15.5); LYMPH # 0.4 x10^3/uL (1.0-4.8); LYMPH % 4 % (24-48); MEAN CORPUSCULAR HEMOGLOBIN 31 pg (25-35); MEAN CORPUSCULAR HGB CONC 33 g/dL (31-37); MEAN CORPUSCULAR VOLUME 94 fL (79-100); MONO # 0.9 x10^3/uL (0.0-1.1); MONO % 8 % (0-9); NEUT # 9.5 x10^3uL (1.8-7.7); NEUT % 88 % (31-73); PLATELET COUNT 111 x10^3/uL (140-400); RED CELL DISTRIBUTION WIDTH 18.5 % (11.5-14.5); WHITE BLOOD COUNT 10.8 x10^3/uL (4.0-11.0)
[2017-11-11 07:02] LABS: ALBUMIN 2.2 g/dL (3.4-5.0); ALBUMIN/GLOBULIN RATIO 0.5 (1.0-1.7); CALCIUM 8.5 mg/dL (8.5-10.1); CREATININE 2.5 mg/dL (0.6-1.0); GFR 24.3; POTASSIUM 3.5 mmol/L (3.5-5.1); TOTAL BILIRUBIN 1.1 mg/dL (0.2-1.0); TOTAL PROTEIN 6.7 g/dL (6.4-8.2)
[2017-11-11] MEDS: PANTOPRAZOLE 40 MG PACKET. PEG SCH (07:46)
[2017-11-11 08:41] LABS: % BANDS 3 % (0-9); % LYMPHS 11 % (24-48); % METAS 2 % (0-0); % MONOS 7 % (0-10); % SEGS 77 % (35-66); NUCLEATED RBC 2
[2017-11-11 08:43] LABS: ANISOCYTOSIS SLIGHT; HYPOCHROMIA SLIGHT; PLT ESTIMATE DECREASED (ADEQUATE); POLYCHROMASIA SLIGHT; SCHISTOCYTES OCC; TARGET CELLS OCC; TEAR DROP CELLS OCC
[2017-11-11] MEDS: POLYVINYL ALCOHOL 1.4% OPHTH SOLUTION 15ML BOTTLE. OU SCH ×2 (09:00→20:01)
[2017-11-11] MEDS: RANOLAZINE 500 MG TAB.ER.12H PO SCH ×2 (09:34→20:01)
[2017-11-11] MEDS: FOLIC ACID 1 MG TABLET PEG SCH (09:35)
[2017-11-11] MEDS: ASPIRIN 81 MG TAB.CHEW PEG SCH (09:35)
[2017-11-11] MEDS: FERROUS SULFATE 325 MG TABLET. PO SCH ×3 (09:35→20:01)
[2017-11-11] MEDS: ALLOPURINOL 300 MG TABLET. PO SCH (09:36)
[2017-11-11] MEDS: PROPAFENONE 150 MG TABLET. PO SCH ×3 (09:39→20:01)
[2017-11-11] MEDS: AMOXICILLIN/K CLAV 500/125MG TABLET. PO SCH ×2 (09:39→20:01)
[2017-11-11 11:15] VITALS: BP 127/85
--- NOTE | 2017-11-11 17:44 | HP ---
ADMIT DATE: 11/10/2017 HISTORY OF PRESENT ILLNESS: The patient is a 56-year-old -[place] female patient who was transferred from [facility] on 11/10/2017. She was admitted there on 11/02/2018. Apparently, she was seen initially at the Emergency Room of [facility]. She was found in her basement by her family, lethargic and poorly responsive. EMS called in to the house and ER evaluation showed that she has acute renal failure. The patient was extremely dehydrated. Her creatinine was 9, BUN of 64, and temperature was 101. She was basically treated with IV fluid and she was transferred to [facility] where apparently she was rehydrated. She has a PICC line placed. She apparently was rehydrated and her kidney function has improved such that her creatinine was 9 mg on admission and it has gradually improved and eventually her creatinine was down to 3 on the day of transfer to [facility] swing bed to start the process of rehabilitation. The patient herself is encephalopathic. She does open her eyes and tracks, but does not really respond to verbal stimuli, does not follow command. PAST MEDICAL HISTORY: Significant for atrial fibrillation, congestive heart failure, hypertension, hyperlipidemia, gastroesophageal reflux disease, peptic ulcer disease, anemia, osteoarthritis and chronic kidney disease. Her baseline creatinine was 2.6 mg/dL. PAST SURGICAL HISTORY: Significant for permanent pacemaker placement. FAMILY HISTORY: Positive for coronary artery disease. SOCIAL HISTORY: She lives with her daughter. She does not smoke, drink alcohol or recreational drugs. Her daughter gives conflicting stories about what she was able and was not was able to do, but apparently she was here before at this facility and she was more lucid and ambulatory. ALLERGIES: SHE IS ALLERGIC TO CEFEPIME. MEDICATIONS: She is currently on following medications: She is on amoxicillin-clavulanic acid 100-25 one tablet twice a day for 7 days, ipratropium bromide, albuterol sulfate 0.5-2.5 mg 3 mL by nebulizer 4 times a day, albuterol sulfate every 6 hours, ferrous sulfate 325 mg 3 times a day, propafenone 150 mg tablet every 8 hours, ranolazine for Ranexa 500 mg extended release twice a day, atorvastatin calcium 40 mg at bedtime, nitroglycerin 0.4 mg sublingually as needed every 5 minutes, aspirin 81 mg once a day. She is on eye drop twice a day, polyethylene glycol 17 grams twice a day, lansoprazole for Prevacid 30 mg daily, betamethasone dipropionate 15 grams ointment applied topically twice a day, folic acid 1 mg once a day, allopurinol 300 mg once a day. REVIEW OF SYSTEMS: Unobtainable. PHYSICAL EXAMINATION: GENERAL: When I saw her today, she was resting, slightly propped up in bed, in her recliner in no apparent distress. She was pale, but no jaundice, cyanosis, or thyromegaly. No jugular venous distension. No limb edema. VITAL SIGNS: Her heart rate was 98. Her blood pressure 127/85, temperature was 98, respiratory rate was 18 and oxygen saturation was 97% on room air. HEAD, EYES, EAR, NOSE AND THROAT: Shows normocephalic, atraumatic. She has a Dobhoff catheter in her left nostril. NECK: Supple. HEART: Showed normal first and second heart sounds. No gallop, rub or murmur. CHEST: Clear to auscultation. No crepitation or rhonchi. ABDOMEN: Distended, soft, nontender. No guarding or rigidity. No organomegaly. All hernial orifices intact. Bowel sounds normal. NEUROLOGIC: She is awake, alert, but the does open her eyes, tracks but does not really follow command. She requires Mahesh lift for all her transfers. She is unable to make her needs known and she has incontinent bowel and bladder. She has an indwelling Prakash catheter. She apparently has dysphagia for which she has a Dobhoff catheter through which she gets her medication and her tube feeding. Her intake over the last 24 hours was 760, output was 550. LABORATORY DATA: Her lab work as of this morning showed a white cell count of 10,800, hemoglobin 9.4, hematocrit 28.1, MCV 94 and platelet count of 211,000 with normal manual differential. Her serum sodium 146, potassium 3.5, chloride 106, bicarbonate 30, anion gap of 10, BUN 60, creatinine 2.5, estimated GFR was 24 and her glucose was 150, calcium was 8.5. Total bilirubin, AST, ALT normal. Alkaline phosphatase were elevated. Her total protein was 6.7, albumin 2.2. ASSESSMENT AND PLAN: In summary, this is a 56-year-old -[place] female patient who was admitted to [facility] with altered mental status. She was extremely dehydrated with acute on chronic kidney injury. Her creatinine was 9. She also has persistent metabolic encephalopathy. Her hypotension has resolved. She is now normotensive. She is known to have atrial fibrillation; however, the heart rate is well controlled; congestive heart failure seems to be clinically well compensated; hypertension, well controlled. Hyperlipidemia for which she is on atorvastatin. Gastroesophageal reflux disease and peptic ulcer disease for which she is on proton pump inhibitor. She has anemia; however, her H and H is 9.4 and 28 and MCV was normal at 94. She is currently on iron and folic acid. She has acute on chronic kidney injury; however, his creatinine is down to 2.5 and it is down from a creatinine of 9, BUN is 60. She also has severe protein-calorie malnutrition. The plan is obviously to continue with nutritional support through her Dobhoff catheter. Continue with physical and occupational therapy as well as speech therapy. I do not have any knowledge about this patient before, so I do not have anything to compare with, but she definitely extremely encephalopathic. Total care for all her ADLs and she probably needs to be in a long-term care facility unless she made dramatic improvement while here at a swing bed facility. We have had a lengthy discussion with the daughter about various options available. If she has not made any improvement, I feel that the patient would have been better served if she has a gastrostomy tube that makes her care much easier as Dobhoff catheter is probably not going to be permanent there. ARNAUD DARBY MD DR: JEFF/armida JOB#: [id number] / [id number]
[2017-11-11 18:15] VITALS: BP 143/91
--- NOTE | 2017-11-11 18:44 | PDOC ---
Exam Note: Rickey Note: Please also refer to the separate dictated note~for this date of service dictated separately.~Patient seen individually. Discussed the patient with Nursing staff reviewed the chart.~Reviewed interim history and current functioning. Reviewed vital signs,~Labs/ Radiology~and current medications noted below. Continue current treatment with the changes noted in the dictated addendum note Assessment: Vital Signs: Vital Signs Date Time Temp Pulse Resp B/P (MAP) Pulse Ox O2 Delivery O2 Flow Rate FiO2 11/11/17 18:15 97.6 96 18 143/91 (108) 92 Room Air I&O Intake and Output 11/11/17 07:00 Intake Total 764 ml Output Total 550 ml Balance 214 ml Intake Oral 0 ml Tube Feeding 314 ml Other 450 ml Output Urine Total 550 ml Labs: Laboratory Tests Test 11/10/17 22:09 11/11/17 06:33 11/11/17 07:38 11/11/17 11:30 Glucose (Fingerstick) 151 mg/dL (70-99) H 154 mg/dL (70-99) H 115 mg/dL (70-99) H White Blood Count 10.8 x10^3/uL (4.0-11.0) Red Blood Count 3.00 x10^6/uL (3.50-5.40) L Hemoglobin 9.4 g/dL (12.0-15.5) L Hematocrit 28.1 % (36.0-47.0) L Mean Corpuscular Volume 94 fL (79-100) Mean Corpuscular Hemoglobin 31 pg (25-35) Mean Corpuscular Hemoglobin Concent 33 g/dL (31-37) Red Cell Distribution Width 18.5 % (11.5-14.5) H Platelet Count 111 x10^3/uL (140-400) L Neutrophils (%) (Auto) 88 % (31-73) H Lymphocytes (%) (Auto) 4 % (24-48) L Monocytes (%) (Auto) 8 % (0-9) Eosinophils (%) (Auto) 0 % (0-3) Basophils (%) (Auto) 0 % (0-3) Neutrophils # (Auto) 9.5 x10^3uL (1.8-7.7) H Lymphocytes # (Auto) 0.4 x10^3/uL (1.0-4.8) L Monocytes # (Auto) 0.9 x10^3/uL (0.0-1.1) Eosinophils # (Auto) 0.0 x10^3/uL (0.0-0.7) Basophils # (Auto) 0.0 x10^3/uL (0.0-0.2) Segmented Neutrophils % 77 % (35-66) H Band Neutrophils % 3 % (0-9) Lymphocytes % 11 % (24-48) L Monocytes % 7 % (0-10) Metamyelocytes % 2 % (0-0) H Nucleated Red Blood Cells 2 Platelet Estimate Decreased (ADEQUATE) Large Platelets Occ Giant Platelets Occ Polychromasia Slight Hypochromasia Slight Basophilic Stippling Present Anisocytosis Slight Target Cells Occ Tear Drop Cells Occ Schistocytes Occ Sodium Level 146 mmol/L (136-145) H Potassium Level 3.5 mmol/L (3.5-5.1) Chloride Level 106 mmol/L (98-107) Carbon Dioxide Level 30 mmol/L (21-32) Anion Gap 10 (6-14) Blood Urea Nitrogen 60 mg/dL (7-20) H Creatinine 2.5 mg/dL (0.6-1.0) H Estimated GFR (Cockcroft-Gault) 24.3 BUN/Creatinine Ratio 24 (6-20) H Glucose Level 150 mg/dL (70-99) H Calcium Level 8.5 mg/dL (8.5-10.1) Total Bilirubin 1.1 mg/dL (0.2-1.0) H Aspartate Amino Transferase (AST) 43 U/L (15-37) H Alanine Aminotransferase (ALT) 29 U/L (14-59) Alkaline Phosphatase 226 U/L (46-116) H Total Protein 6.7 g/dL (6.4-8.2) Albumin 2.2 g/dL (3.4-5.0) L Albumin/Globulin Ratio 0.5 (1.0-1.7) L Test 11/11/17 17:03 Glucose (Fingerstick) 124 mg/dL (70-99) H Current Medications: Meds: Current Medications Albuterol Sulfate (Ventolin Hfa) 1 puff PRN Q6HRS PRN INH SHORTNESS OF BREATH; Start 11/10/17 at 19:45; Stop 11/10/17 at 20:29; Status DC Allopurinol (Zyloprim) 300 mg DAILY PO Last administered on 11/11/17 09:36; Start 11/11/17 at 09:00 Amoxicillin/ Clavulanate Potassium (Augmentin 500/ 125mg) 1 tab BID PO Last administered on 11/11/17 09:39; Start 11/10/17 at 21:00; Stop 11/17/17 at 20:59 Aspirin (Children'S Aspirin) 162 mg DAILY PEG Last administered on 11/11/17 09: 35; Start 11/11/17 at 09:00 Betamethasone Dipropionate (Diprosone) 15 pau PRN BID PRN TP PAIN; Start at 19:45 Ferrous Sulfate (Feosol) 325 mg TID PO Last administered on 11/11/17 13:26; Start 11/10/17 at 21:00 Folic Acid (Folic Acid) 1 mg DAILY PEG Last administered on 11/11/17 09:35; Start 11/11/17 at 09:00 Albuterol/ Ipratropium (Duoneb) 3 ml QID NEB Last administered on 11/11/17 15: 44; Start 11/10/17 at 21:00 Nitroglycerin (Nitrostat) 0.4 mg PRN Q5MIN PRN SL CHEST PAIN; Start 11/10/17 at 19:45 Polyethylene Glycol (miraLAX) 17 gm PRN BID PRN PEG CONSTIPATION; Start at 19:45 Propafenone HCl (Rythmol) 150 mg TID PO Last administered on 11/11/17 13:26; Start 11/10/17 at 21:00 Ranolazine (Ranexa) 500 mg BID PO Last administered on 11/11/17 09:34; Start at 21:00 Atorvastatin Calcium (Lipitor) 40 mg QHS PEG Last administered on 11/10/17 21: 05; Start 11/10/17 at 21:00 Pantoprazole Sodium (Protonix Packet) 40 mg DAILYAC PEG Last administered on 07:46; Start 11/11/17 at 07:30 Artificial Tears (Artificial Tears) 1 drop BID OU Last administered on 21:06; Start 11/10/17 at 21:00 Albuterol Sulfate (Ventolin) 2.5 mg PRN Q6HRS PRN NEB SHORTNESS OF BREATH; Start 11/10/17 at 20:30 Lactobacillus Rhamnosus (Culturelle) 1 cap BID PO ; Start 11/11/17 at 21:00; Status Cancel Active Scripts Active Reported Augmentin 500-125 Tablet (Amoxicillin/Potassium Clav) 1 Each Tablet 1 Each PO BID 7 Days LAST DOSE GIVEN: DATE: TIME: NEXT DOSE DUE: DATE: TIME: Duoneb 0.5-3(2.5) Mg/3 Ml (Albuterol/Ipratropium) 3 Ml Ampul.neb 3 Ml NEB QID LAST DOSE GIVEN: DATE: TIME: NEXT DOSE DUE: DATE: TIME: Proair Hfa Inhaler (Albuterol Sulfate) 8.5 Gm Hfa.aer.ad 1 Puff INH PRN Q6HRS PRN LAST DOSE GIVEN: DATE: TIME: NEXT DOSE DUE: DATE: TIME: Propafenone Hcl 150 Mg Tablet 150 Mg PO Q8HR MAKE SURE YOU TAKE YOUR BLOOD PRESSURE BEFORE TAKING THIS MED LAST DOSE GIVEN: DATE: TIME: NEXT DOSE DUE: DATE: TIME: Miralax (Polyethylene Glycol 3350) 17 Gm Powd.pack 17 Gm PO PRN BID PRN LAST DOSE GIVEN: DATE: TIME: NEXT DOSE DUE: DATE: TIME: NITROGLYCERIN SubLingual (Nitroglycerin) 0.4 Mg Tab.subl 0.4 Mg SL PRN Q5MIN PRN LAST DOSE GIVEN: DATE: TIME: NEXT DOSE DUE: DATE: TIME: Lansoprazole 30 Mg Capsule.dr 30 Mg PO DAILY LAST DOSE GIVEN: DATE: TIME: NEXT DOSE DUE: DATE: TIME: Folic Acid 1 Mg Tablet 1 Mg PO DAILY LAST DOSE GIVEN: DATE: TIME: NEXT DOSE DUE: DATE: TIME: Betamethasone Dipropionate 15 Gm Oint...g. 15 Gm TP PRN BID PRN LAST DOSE GIVEN: DATE: TIME: NEXT DOSE DUE: DATE: TIME: Aspirin 81 Mg Tab.chew 162 Mg PO DAILY LAST DOSE GIVEN: DATE: TIME: NEXT DOSE DUE: DATE: TIME: Ranexa (Ranolazine) 500 Mg Tab.er.12h 1 Tab PO BID LAST DOSE GIVEN: DATE: TIME: NEXT DOSE DUE: DATE: TIME: Atorvastatin Calcium 40 Mg Tablet 40 Mg PO HS LAST DOSE GIVEN: DATE: TIME: NEXT DOSE DUE: DATE: TIME: Iron (Ferrous Sulfate) 325 Mg Tablet 325 Mg PO TID LAST DOSE GIVEN: DATE: TIME: NEXT DOSE DUE: DATE: TIME: Allopurinol 300 Mg Tablet 300 Mg PO DAILY LAST DOSE GIVEN: DATE: TIME: NEXT DOSE DUE: DATE: TIME: Eye Drop Tears (Peg 400/Hypromellose/Glycerin) 15 Ml Drops 1 Drop OU BID I have reviewed the current psychotropics carefully including drug interactions. Risk benefit ratio favors no change other than as noted in my dictated progress note. Diagnosis: Problems: (1) Anxiety disorder (2) Major depressive disorder, recurrent episode NIK ALBARADO MD Nov 11, 2017 18:44
[2017-11-11] MEDS: ATORVASTATIN CALCIUM 20 MG TABLET PEG SCH (20:01)
[2017-11-11] MEDS ORDERED: LACTOBACILLUS RHAMNOSUS GG 1 CAPSULE. PO SCH (21:00)
[2017-11-12] MEDS: IPRATRPIUM/ALBUTEROL 0.5/2.5MG 3 ML NEBU. NEB SCH ×3 (05:20→15:10)
[2017-11-12 06:15] VITALS: BP 124/77
[2017-11-12] MEDS: PANTOPRAZOLE 40 MG PACKET. PEG SCH (09:26)
[2017-11-12] MEDS: ASPIRIN 81 MG TAB.CHEW PEG SCH (09:26)
[2017-11-12] MEDS: FERROUS SULFATE 325 MG TABLET. PO SCH ×2 (09:26→13:56)
[2017-11-12] MEDS: ALLOPURINOL 300 MG TABLET. PO SCH (09:26)
[2017-11-12] MEDS: AMOXICILLIN/K CLAV 500/125MG TABLET. PO SCH (09:26)
[2017-11-12] MEDS: FOLIC ACID 1 MG TABLET PEG SCH (09:26)
[2017-11-12] MEDS: PROPAFENONE 150 MG TABLET. PO SCH ×2 (09:26→13:56)
[2017-11-12] MEDS: RANOLAZINE 500 MG TAB.ER.12H PO SCH (09:27)
[2017-11-12] MEDS: POLYVINYL ALCOHOL 1.4% OPHTH SOLUTION 15ML BOTTLE. OU SCH (09:27)
[2017-11-12 16:51] VITALS: BP 135/83
--- NOTE | 2017-11-12 17:14 | DS ---
DATE OF DISCHARGE: 11/12/2017 HOSPITAL COURSE: The patient was approximately is a 56-year-old -[place] female patient was transferred recently from [facility] to [facility], Unfortunately, she has dysphagia and has a Dobhoff catheter that was clogged and unfortunately she is also very hard and difficult vascular access and multiple attempts were made to unclog the Dobhoff catheter without success and therefore, a decision was made to transfer her back to [facility] to consult the gastroenterology and also the urologist as she has also hematuria. The patient herself is very encephalopathic, does not give a lot of information. PHYSICAL EXAMINATION: GENERAL: When I saw her this afternoon, she was resting slightly propped up in bed, in no apparent respiratory distress. She was pale, no jaundice, cyanosis, or thyromegaly. No jugular venous distension. No limb edema. VITAL SIGNS: Her heart rate was 119, blood pressure 124/77, temperature was 97.6, respiratory rate was 22 and oxygen saturation was 99% on 2 liters of oxygen. HEAD, EYES, EARS, NOSE AND THROAT: Normocephalic, atraumatic. NECK: Supple. HEART: Showed normal first and second heart sounds with no gallop, rub or murmur. CHEST: Clear to auscultation. No crepitation or rhonchi. ABDOMEN: Distended, soft, nontender. No guarding or rigidity. No organomegaly. All hernial orifice intact. Bowel sounds normal. NEUROLOGIC: She is awake, alert, opens eyes, tracks, occasionally mouths some words but mostly nonverbal. All her cranial nerves seem to be grossly intact. She moves her extremities spontaneously; however, she has what seemed to be almost functional quadriplegia and she is a Mahesh lift. She has an indwelling Prakash catheter. LABORATORY DATA: As of yesterday showed a white cell count of 10,800, hemoglobin 9.4, hematocrit 28, MCV 94 and platelet count of 111,000. Her chemistry showed a serum sodium 146, potassium 3.5, chloride 106, bicarbonate 30, anion gap of 10, BUN 60, creatinine 2.5, estimated GFR was 24 mL per minute. Her glucose 150, calcium was 8.5. Total bilirubin, AST and ALT are normal. Alkaline phosphatase are elevated. Total protein was 6.7, albumin 2.2. DISCHARGE MEDICATIONS: She was discharged or transferred back to [facility] to continue on all medications that can be given but not required oral intake. FINAL DISCHARGE DIAGNOSES: We will consult the envelope stuffer for placement of a PEG tube and also a urologist as she has hematuria. ARNAUD DARBY MD DR: JEFF/armida JOB#: [id number] / [id number]
--- NOTE | 2017-11-12 18:39 | PDOC ---
Exam Note: Rickey Note: Please also refer to the separate dictated note~for this date of service dictated separately.~Patient seen individually. Discussed the patient with Nursing staff reviewed the chart.~Reviewed interim history and current functioning. Reviewed vital signs,~Labs/ Radiology~and current medications noted below. Continue current treatment with the changes noted in the dictated addendum note Assessment: Vital Signs: Vital Signs Date Time Temp Pulse Resp B/P (MAP) Pulse Ox O2 Delivery O2 Flow Rate FiO2 11/12/17 16:51 98.5 105 20 135/83 (100) 96 Nasal Cannula 2.0 I&O Intake and Output 11/12/17 07:00 Intake Total 1707 ml Output Total 1350 ml Balance 357 ml Intake Oral 0 ml Tube Feeding 693 ml Other 1014 ml Output Urine Total 1350 ml # Bowel Movements 4 Labs: Laboratory Tests Test 11/11/17 19:02 11/12/17 07:55 11/12/17 11:25 11/12/17 16:51 Glucose (Fingerstick) 129 mg/dL (70-99) H 142 mg/dL (70-99) H 123 mg/dL (70-99) H 90 mg/dL (70-99) Current Medications: Meds: Current Medications Albuterol Sulfate (Ventolin Hfa) 1 puff PRN Q6HRS PRN INH SHORTNESS OF BREATH; Start 11/10/17 at 19:45; Stop 11/10/17 at 20:29; Status DC Allopurinol (Zyloprim) 300 mg DAILY PO Last administered on 11/12/17 09:26; Start 11/11/17 at 09:00 Amoxicillin/ Clavulanate Potassium (Augmentin 500/ 125mg) 1 tab BID PO Last administered on 11/12/17 09:26; Start 11/10/17 at 21:00; Stop 11/17/17 at 20:59 Aspirin (Children'S Aspirin) 162 mg DAILY PEG Last administered on 11/12/17 09: 26; Start 11/11/17 at 09:00 Betamethasone Dipropionate (Diprosone) 15 pau PRN BID PRN TP PAIN; Start at 19:45 Ferrous Sulfate (Feosol) 325 mg TID PO Last administered on 11/12/17at 09:26; Start 11/10/17 at 21:00 Folic Acid (Folic Acid) 1 mg DAILY PEG Last administered on 11/12/17 09:26; Start 11/11/17 at 09:00 Albuterol/ Ipratropium (Duoneb) 3 ml QID NEB Last administered on 11/12/17 15: 10; Start 11/10/17 at 21:00 Nitroglycerin (Nitrostat) 0.4 mg PRN Q5MIN PRN SL CHEST PAIN; Start 11/10/17 at 19:45 Polyethylene Glycol (miraLAX) 17 gm PRN BID PRN PEG CONSTIPATION; Start at 19:45 Propafenone HCl (Rythmol) 150 mg TID PO Last administered on 11/12/17 09:26; Start 11/10/17 at 21:00 Ranolazine (Ranexa) 500 mg BID PO Last administered on 11/12/17 09:27; Start at 21:00 Atorvastatin Calcium (Lipitor) 40 mg QHS PEG Last administered on 11/11/17 20: 01; Start 11/10/17 at 21:00 Pantoprazole Sodium (Protonix Packet) 40 mg DAILYAC PEG Last administered on 09:26; Start 11/11/17 at 07:30 Artificial Tears (Artificial Tears) 1 drop BID OU Last administered on 09:27; Start 11/10/17 at 21:00 Albuterol Sulfate (Ventolin) 2.5 mg PRN Q6HRS PRN NEB SHORTNESS OF BREATH; Start 11/10/17 at 20:30 Lactobacillus Rhamnosus (Culturelle) 1 cap BID PO ; Start 11/11/17 at 21:00; Status Cancel Active Scripts Active Reported Augmentin 500-125 Tablet (Amoxicillin/Potassium Clav) 1 Each Tablet 1 Each PO BID 7 Days LAST DOSE GIVEN: DATE: TIME: NEXT DOSE DUE: DATE: TIME: Duoneb 0.5-3(2.5) Mg/3 Ml (Albuterol/Ipratropium) 3 Ml Ampul.neb 3 Ml NEB QID LAST DOSE GIVEN: DATE: TIME: NEXT DOSE DUE: DATE: TIME: Proair Hfa Inhaler (Albuterol Sulfate) 8.5 Gm Hfa.aer.ad 1 Puff INH PRN Q6HRS PRN LAST DOSE GIVEN: DATE: TIME: NEXT DOSE DUE: DATE: TIME: Propafenone Hcl 150 Mg Tablet 150 Mg PO Q8HR MAKE SURE YOU TAKE YOUR BLOOD PRESSURE BEFORE TAKING THIS MED LAST DOSE GIVEN: DATE: TIME: NEXT DOSE DUE: DATE: TIME: Miralax (Polyethylene Glycol 3350) 17 Gm Powd.pack 17 Gm PO PRN BID PRN LAST DOSE GIVEN: DATE: TIME: NEXT DOSE DUE: DATE: TIME: NITROGLYCERIN SubLingual (Nitroglycerin) 0.4 Mg Tab.subl 0.4 Mg SL PRN Q5MIN PRN LAST DOSE GIVEN: DATE: TIME: NEXT DOSE DUE: DATE: TIME: Lansoprazole 30 Mg Capsule.dr 30 Mg PO DAILY LAST DOSE GIVEN: DATE: TIME: NEXT DOSE DUE: DATE: TIME: Folic Acid 1 Mg Tablet 1 Mg PO DAILY LAST DOSE GIVEN: DATE: TIME: NEXT DOSE DUE: DATE: TIME: Betamethasone Dipropionate 15 Gm Oint...g. 15 Gm TP PRN BID PRN LAST DOSE GIVEN: DATE: TIME: NEXT DOSE DUE: DATE: TIME: Aspirin 81 Mg Tab.chew 162 Mg PO DAILY LAST DOSE GIVEN: DATE: TIME: NEXT DOSE DUE: DATE: TIME: Ranexa (Ranolazine) 500 Mg Tab.er.12h 1 Tab PO BID LAST DOSE GIVEN: DATE: TIME: NEXT DOSE DUE: DATE: TIME: Atorvastatin Calcium 40 Mg Tablet 40 Mg PO HS LAST DOSE GIVEN: DATE: TIME: NEXT DOSE DUE: DATE: TIME: Iron (Ferrous Sulfate) 325 Mg Tablet 325 Mg PO TID LAST DOSE GIVEN: DATE: TIME: NEXT DOSE DUE: DATE: TIME: Allopurinol 300 Mg Tablet 300 Mg PO DAILY LAST DOSE GIVEN: DATE: TIME: NEXT DOSE DUE: DATE: TIME: Eye Drop Tears (Peg 400/Hypromellose/Glycerin) 15 Ml Drops 1 Drop OU BID I have reviewed the current psychotropics carefully including drug interactions. Risk benefit ratio favors no change other than as noted in my dictated progress note. Diagnosis: Problems: (1) Metabolic encephalopathy (2) Major depressive disorder, recurrent episode (3) Anxiety disorder NIK ALBARADO MD Nov 12, 2017 18:39
--- NOTE | 2017-11-12 21:22 | CONS ---
DATE OF CONSULTATION: 11/11/2017 This is a late entry for 11/11/2017 and covers elements not covered in my initial note of 11/11/2017. IDENTIFYING DATA: The patient is a 56-year-old -[place] female who is seen in room 130 on the swing unit at [facility] for a psychiatric consult as requested by Dr. Otoole on account of "suspected depression. The patient refuses to speak. Will not answer questions. Refuses to participate in care such as working with PT, OT." The patient seen individually, discussed with nursing staff, reviewed the chart. CHIEF COMPLAINT: "No." The patient essentially nonverbal, refusing to answer questions, but otherwise pleasant, cooperative, lying in bed. HISTORY OF PRESENT ILLNESS: The patient was transferred from [facility] on 11/10/2017 and she had been there since 11/02/2017. She was initially found in the basement of her home by the family lethargic, poorly responsive. EMS was called to the house. She came to the ER at [place], had acute renal failure, extremely dehydrated, placed on IV fluids, transferred to [facility] and was rehydrated. Creatinine improved from 9 to 3 and then she came to the swing unit. She has been extremely confused, encephalopathic, does not follow commands per notes by Dr. Otoole. No relevant past psychiatric history of mental health treatment was noted. PAST MEDICAL HISTORY: Atrial fibrillation, CHF, hypertension, hyperlipidemia, GERD, peptic ulcer disease, anemia, osteoarthritis, chronic kidney disease. PAST SURGICAL HISTORY: Permanent pacemaker. FAMILY HISTORY: Coronary artery disease. SOCIAL HISTORY: Lives with her daughter. No alcohol or drug abuse history. She has been at [place] in the past. Reportedly, she was more lucid at that time. ALLERGIES: CEFEPIME. CURRENT PSYCHOTROPICS: Noncontributory. REVIEW OF SYSTEMS: Unobtainable. MENTAL STATUS EXAMINATION: The patient seen individually in her room. She is lying in bed, seems comfortable, does not answer questions, often responses monosyllabic, low in volume, difficult to understand. Does not seem oriented. No suicidal or homicidal ideation. No clear psychotic symptoms. Attention span short. IMPRESSION: Major neurocognitive disorder, possibly vascular/metabolic with depression, history of encephalopathy. PLAN: I would recommend a CT head for workup of her cognitive deficits. Nothing different from a psychiatric standpoint, but we will reassess as she improves medically and stabilizes, we will see how much of the encephalopathy seems to resolve. NIK ALBARADO MD DR: Eileen JOB#: [id number] / [id number]
--- NOTE | 2017-11-13 22:58 | PN ---
DATE: 11/12/2017 This late entry 11/12/2017 covers elements not covered in my initial note 11/12/2017. Met with the patient in the evening of 11/12/2017 in her room on the swing unit. Per nursing report, the patient will be transferred to [facility] evening of 11/12/2017. She has been withdrawn, not very verbally interactive. CT head was reviewed, which was done at [place]. No acute changes. REVIEW OF SYSTEMS: Ambulation impaired. No CV, , pulmonary, eye system symptoms on review, not very verbal. MENTAL STATUS EXAM: Oriented to herself. Insight, judgment, recent and remote memory, attention, concentration, fund of knowledge poor, consistent with her diagnosis. Difficult to assess her mentation since she is not very verbal at all. IMPRESSION: Unchanged from initial note. PLAN: No change from a psychiatric standpoint. MAN Hilaria ALBARADO MD DR: ADRIANNE/armida JOB#: [id number] / [id number]
== END 2017-11-12 19:55 | disposition short-term general hospital (02) | DRG 919 ==
LOC: EDBD → LND 16:10
PROVIDERS: ADMIT Internal Medicine; ATTEND Internal Medicine
DX: T85.598A Other mechanical complication of other gastrointestinal prosthetic devices, implants and grafts, initial encounter (principal); G93.41 Metabolic encephalopathy; E43 Unspecified severe protein-calorie malnutrition; N17.9 Acute kidney failure, unspecified; I13.0 Hypertensive heart and chronic kidney disease with heart failure and stage 1 through stage 4 chronic kidney disease, or unspecified chronic kidney disease; I50.9 Heart failure, unspecified; R13.10 Dysphagia, unspecified; I48.91 Unspecified atrial fibrillation; F33.9 Major depressive disorder, recurrent, unspecified; F01.50 Vascular dementia, unspecified severity, without behavioral disturbance, psychotic disturbance, mood disturbance, and anxiety; E78.5 Hyperlipidemia, unspecified; K27.9 Peptic ulcer, site unspecified, unspecified as acute or chronic, without hemorrhage or perforation; D64.9 Anemia, unspecified; M19.90 Unspecified osteoarthritis, unspecified site; E86.0 Dehydration; N18.9 Chronic kidney disease, unspecified; F41.9 Anxiety disorder, unspecified; R31.9 Hematuria, unspecified; Y83.8 Other surgical procedures as the cause of abnormal reaction of the patient, or of later complication, without mention of misadventure at the time of the procedure; Y92.89 Other specified places as the place of occurrence of the external cause; Z82.49 Family history of ischemic heart disease and other diseases of the circulatory system; Z95.0 Presence of cardiac pacemaker; Z68.37 Body mass index [BMI] 37.0-37.9, adult; K21.9 Gastro-esophageal reflux disease without esophagitis; Z87.11 Personal history of peptic ulcer disease
CPT/HCPCS: 36415; 74018; 80053; 82947; 85007; 85025; 94640; 97163; J7620; 97112; 97530; 97535